=== PATIENT | female | born 1950 | race Caucasian/White ===

== ENCOUNTER → 2017-04-19 | Outpatient (CLI) | payer MEDICARE, MEDICAID ==
--- NOTE | 2017-04-19 15:29 | REPMRS ---
Patient History The patient states she had a clinical breast exam in 03/2017. Patient is postmenopausal. Family history of breast cancer in maternal grandmother at age 50 or over. Benign stereotatic breast biopsy of the left breast. Digital Woman Screen Mammo: April 19, 2017 - Exam #: [id number] Bilateral CC and MLO view(s) were taken. Technologist: Justyna Hood, Technologist Prior study comparison: March 13, 2016, digital woman screen mammo performed at [facility]. February 15, 2015, digital woman screen mammo performed at [facility]. FINDINGS: There are scattered fibroglandular densities. There has been no change in the appearance of the mammogram from the prior studies. There is a mild amount of residual fibroglandular tissue which is fairly symmetric. There is no interval development of dominant mass, architectural distortion, or clustered microcalcification suggestive of malignancy. ASSESSMENT: BI-RADS/ACR category 1 mammogram. Negative. Recommendation Routine screening mammogram in 1 year (for women over age 40). This mammogram was interpreted with the aid of an FDA-approved computer-aided dectection system. Electronically Signed By: Nadir Barba MD 04/19/17 [id number]
== END ==
LOC: M WHC 13:11
PROVIDERS: ATTEND Nurse Practitioner Women's Health
DX: Z12.31 Encounter for screening mammogram for malignant neoplasm of breast (principal); Z78.0 Asymptomatic menopausal state; Z92.89 Personal history of other medical treatment; Z80.3 Family history of malignant neoplasm of breast

== ENCOUNTER → 2017-10-29 | Outpatient (CLI) | payer MEDICARE, MEDICAID ==
[2017-10-29 13:41] LABS: BASO # 0.1 10^3/uL (0.0-0.2); BASO % 0.6 % (0.0-1.0); EOS % 0.2 % (0.0-3.0); HEMOGLOBIN 13.6 g/dl (12.0-15.5); IMMATURE GRANULOCYTE % 0.2 % (0-3.0); LYMPH # 1.1 10^3/uL (1.5-4.5); LYMPH % 11.8 % (24.0-44.0); MEAN CORPUSCULAR HEMOGLOBIN 32.2 pg (27.0-33.0); MEAN CORPUSCULAR HGB CONC 33.2 g/dl (32.0-36.5); MEAN CORPUSCULAR VOLUME 97.2 fl (80.0-96.0); MONO # 0.3 10^3/uL (0.0-0.8); MONO % 3.5 % (0.0-5.0); NEUTROPHILS # 7.6 10^3/uL (1.8-7.7); NEUTROPHILS % 83.7 % (36.0-66.0); PLATELET COUNT, AUTOMATED 223 10^3/uL (150-450); RED BLOOD COUNT 4.22 10^6/uL (4.00-5.40); RED CELL DISTRIBUTION WIDTH 12.8 % (11.5-14.5); WHITE BLOOD COUNT 9.1 10^3/uL (4.0-10.0)
[2017-10-29 14:09] LABS: ESTIMATED AVERAGE GLUCOSE 126 MG/DL (60-110)
[2017-10-29 14:18] LABS: TOTAL 25(OH) VITAMIN D 125.8 NG/ML (30.0-100.0)
[2017-10-29 14:20] LABS: ALBUMIN 3.7 GM/DL (3.2-5.2); ALBUMIN/GLOBULIN RATIO 1.09 (1.00-1.93); ALKALINE PHOSPHATASE 66 U/L (45-117); ALT/SGPT 14 U/L (12-78); ANION GAP 7 MEQ/L (8-16); AST/SGOT 12 U/L (7-37); BILIRUBIN,TOTAL 0.4 MG/DL (0.2-1.0); BLOOD UREA NITROGEN 24 MG/DL (7-18); CALCIUM LEVEL 9.3 MG/DL (8.8-10.2); CARBON DIOXIDE LEVEL 27 MEQ/L (21-32); CHLORIDE LEVEL 106 MEQ/L (98-107); CHOLESTEROL LEVEL 166 MG/DL (<200); CHOLESTEROL RISK RATIO 2.766 (<5); CREATININE FOR GFR 1.15 MG/DL (0.55-1.30); FREE T4 1.07 NG/DL (0.76-1.46); GLOMERULAR FILTRATION RATE 50.3 (>45); GLUCOSE, FASTING 88 MG/DL (70-100); HDL CHOLESTEROL 60 MG/DL (>40); LDL CHOLESTEROL 89.2 MG/DL (<100); MAGNESIUM LEVEL 1.7 MG/DL (1.8-2.4); NON-HDL-C 106 MG/DL; SODIUM LEVEL 140 MEQ/L (136-145); THYROID STIMULATING HORMONE 0.893 uIU/ML (0.358-3.740); TOTAL PROTEIN 7.1 GM/DL (6.4-8.2); TRIGLYCERIDES LEVEL 84 MG/DL (<150)
[2017-10-29 14:24] LABS: POTASSIUM SERUM 5.4 MEQ/L (3.5-5.1)
== END ==
LOC: M LAB 12:46
DX: I10 Essential (primary) hypertension (principal); I25.10 Atherosclerotic heart disease of native coronary artery without angina pectoris; Z79.899 Other long term (current) drug therapy; E78.00 Pure hypercholesterolemia, unspecified; R73.09 Other abnormal glucose; E55.9 Vitamin D deficiency, unspecified
CPT/HCPCS: 83735

== ENCOUNTER 2018-01-20 17:06 | Emergency (ER) | payer MEDICARE, MEDICAID | END 2018-01-20 20:59 | disposition home or self-care (01) | LOC: M ED 17:06 | DX: M71.21 Synovial cyst of popliteal space [Baker], right knee (principal); M06.9 Rheumatoid arthritis, unspecified; Z86.718 Personal history of other venous thrombosis and embolism; Z95.0 Presence of cardiac pacemaker; F17.210 Nicotine dependence, cigarettes, uncomplicated; Z88.2 Allergy status to sulfonamides; Z79.899 Other long term (current) drug therapy; Z79.52 Long term (current) use of systemic steroids | CPT/HCPCS: 93971 ==

== ENCOUNTER → 2018-03-21 | Outpatient (CLI) | payer MEDICARE, MEDICAID ==
[2018-03-21 11:06] LABS: POTASSIUM SERUM 4.8 MEQ/L (3.5-5.1)
== END ==
LOC: M LAB 10:31
DX: E87.5 Hyperkalemia (principal)
CPT/HCPCS: 84132

== ENCOUNTER → 2018-03-27 | Outpatient (CLI) | payer MEDICARE, MEDICAID ==
[2018-03-27 09:26] LABS: POTASSIUM SERUM 4.5 MEQ/L (3.5-5.1)
== END ==
LOC: M LAB 08:27
DX: E87.5 Hyperkalemia (principal)
CPT/HCPCS: 84132

== ENCOUNTER → 2018-07-15 | Outpatient (CLI) | payer MEDICARE, MEDICAID ==
[~2018-07-15] MED LIST: ATOR40TA75 PO; FLUT22IN PO; HYDR-3716 PO; LISI-538 PO; METO1TAB32 PO; MONT10TA2 PO; PRED5TA PO; RANI150T PO
[2018-07-15 15:15] LABS: BASO # 0.1 10^3/uL (0.0-0.2); EOS # 0.1 10^3/uL (0.0-0.50); EOS % 0.9 % (0.0-3.0); HEMATOCRIT 43.5 % (36.0-47.0); HEMOGLOBIN 14.3 g/dl (12.0-15.5); LYMPH # 1.4 10^3/uL (1.5-4.5); LYMPH % 17.3 % (24.0-44.0); MEAN CORPUSCULAR HEMOGLOBIN 32.5 pg (27.0-33.0); MEAN CORPUSCULAR HGB CONC 32.9 g/dl (32.0-36.5); MEAN CORPUSCULAR VOLUME 98.9 fl (80.0-96.0); MONO # 0.5 10^3/uL (0.0-0.8); MONO % 6.3 % (0.0-5.0); NEUTROPHILS # 5.9 10^3/uL (1.8-7.7); NEUTROPHILS % 74.2 % (36.0-66.0); PLATELET COUNT, AUTOMATED 182 10^3/uL (150-450)
[2018-07-15 15:45] LABS: ALBUMIN 3.5 GM/DL (3.2-5.2); BILIRUBIN,TOTAL 0.4 MG/DL (0.2-1.0); CREATININE FOR GFR 1.19 MG/DL (0.55-1.30); FREE T4 0.95 NG/DL (0.76-1.46); GLOMERULAR FILTRATION RATE 48.3 (>45); MAGNESIUM LEVEL 1.7 MG/DL (1.8-2.4); POTASSIUM SERUM 5.2 MEQ/L (3.5-5.1); THYROID STIMULATING HORMONE 0.801 uIU/ML (0.358-3.740); TOTAL PROTEIN 6.6 GM/DL (6.4-8.2)
== END ==
LOC: M LAB 14:23
PROVIDERS: ATTEND Nurse Practitioner Adult Health
DX: E78.2 Mixed hyperlipidemia (principal); I25.10 Atherosclerotic heart disease of native coronary artery without angina pectoris

== ENCOUNTER → 2018-07-15 | Outpatient (CLI) | payer MEDICARE, MEDICAID ==
[2018-07-15 15:43] LABS: CHOLESTEROL RISK RATIO 2.924 (<5)
== END ==
LOC: M LAB 14:31
PROVIDERS: ATTEND Physician Assistant
DX: I25.10 Atherosclerotic heart disease of native coronary artery without angina pectoris (principal)

== ENCOUNTER → 2018-09-09 | Outpatient (CLI) | payer MEDICARE ==
[2018-09-09 08:48] LABS: BASO # 0.1 10^3/uL (0.0-0.2); BASO % 0.6 % (0.0-1.0); EOS % 0.2 % (0.0-3.0); HEMATOCRIT 44.3 % (36.0-47.0); HEMOGLOBIN 14.4 g/dl (12.0-15.5); LYMPH # 0.9 10^3/uL (1.5-4.5); LYMPH % 6.9 % (24.0-44.0); MEAN CORPUSCULAR HEMOGLOBIN 32.3 pg (27.0-33.0); MEAN CORPUSCULAR HGB CONC 32.5 g/dl (32.0-36.5); MEAN CORPUSCULAR VOLUME 99.3 fl (80.0-96.0); MONO # 0.6 10^3/uL (0.0-0.8); NEUTROPHILS # 10.9 10^3/uL (1.8-7.7); NEUTROPHILS % 87.1 % (36.0-66.0); PLATELET COUNT, AUTOMATED 197 10^3/uL (150-450); RED BLOOD COUNT 4.46 10^6/uL (4.00-5.40); WHITE BLOOD COUNT 12.5 10^3/uL (4.0-10.0)
[2018-09-09 09:10] LABS: HEMOGLOBIN A1c 5.9 %
[2018-09-09 09:17] LABS: ALBUMIN 3.4 GM/DL (3.2-5.2); BILIRUBIN,TOTAL 0.5 MG/DL (0.2-1.0); CALCIUM LEVEL 8.9 MG/DL (8.8-10.2); CHOLESTEROL RISK RATIO 2.61 (<5); CREATININE FOR GFR 1.26 MG/DL (0.55-1.30); FREE T4 1.09 NG/DL (0.76-1.46); GLOMERULAR FILTRATION RATE 45.1 (>45); MAGNESIUM LEVEL 1.8 MG/DL (1.8-2.4); POTASSIUM SERUM 5.1 MEQ/L (3.5-5.1); THYROID STIMULATING HORMONE 0.994 uIU/ML (0.358-3.740); TOTAL PROTEIN 6.5 GM/DL (6.4-8.2)
== END ==
LOC: M LAB 08:16
PROVIDERS: ATTEND Nurse Practitioner Adult Health
DX: E78.2 Mixed hyperlipidemia (principal); E03.9 Hypothyroidism, unspecified; E61.2 Magnesium deficiency; Z79.899 Other long term (current) drug therapy

== ENCOUNTER 2019-02-08 15:13 | Emergency (ER) | payer MEDICARE, MEDICAID ==
[2019-02-08 16:12] VITALS: BP 110/56
--- NOTE | 2019-02-08 19:49 | REP ---
REASON: Pain after trauma. Four views were obtained. The bones are demineralized. There is mild medial compartmental marginal osteophytosis. There is no evidence of an acute fracture. A sunrise view was unobtainable. This limits the exam for patellar fracture. IMPRESSION:Limited exam showing chronic changes. Electronically Signed by Joe Dietrich DO 02/09/2019 10:02 A
== END 2019-02-08 16:48 | disposition home or self-care (01) ==
LOC: M ED 15:13
DX: S83.92XA Sprain of unspecified site of left knee, initial encounter (principal); W01.0XXA Fall on same level from slipping, tripping and stumbling without subsequent striking against object, initial encounter; Y92.002 Bathroom of unspecified non-institutional (private) residence as the place of occurrence of the external cause; Y93.E1 Activity, personal bathing and showering; I10 Essential (primary) hypertension; J44.9 Chronic obstructive pulmonary disease, unspecified; M06.9 Rheumatoid arthritis, unspecified; Z79.52 Long term (current) use of systemic steroids; Z79.891 Long term (current) use of opiate analgesic; Z79.899 Other long term (current) drug therapy; Z88.2 Allergy status to sulfonamides

== ENCOUNTER 2019-05-06 18:00 | Emergency (ER) | payer MEDICARE, MEDICAID ==
[~2019-05-06] VITALS: Ht 157.5 cm; Wt 54.4 kg
[2019-05-06] MEDS ORDERED: GABA-843 (18:05)
[2019-05-06 19:39] LABS: ERYTHROCYTE SEDIMENTATION RATE 23 mm/hr (0-30)
[2019-05-06 19:40] LABS: BASO # 0.1 10^3/uL (0.0-0.2); BASO % 0.7 % (0.0-1.0); EOS # 0.1 10^3/uL (0.0-0.5); HEMATOCRIT 42.1 % (36.0-47.0); HEMOGLOBIN 13.4 g/dl (12.0-15.5); LYMPH # 1.6 10^3/uL (1.5-5.0); LYMPH % 16.2 % (24.0-44.0); MEAN CORPUSCULAR HEMOGLOBIN 31.5 pg (27.0-33.0); MEAN CORPUSCULAR HGB CONC 31.8 g/dl (32.0-36.5); MEAN CORPUSCULAR VOLUME 98.8 fl (80.0-96.0); MONO # 0.6 10^3/uL (0.0-0.8); MONO % 6.4 % (0.0-5.0); NEUTROPHILS # 7.3 10^3/uL (1.5-8.5); NEUTROPHILS % 75.3 % (36.0-66.0); PLATELET COUNT, AUTOMATED 250 10^3/uL (150-450); RED BLOOD COUNT 4.26 10^6/uL (4.00-5.40); WHITE BLOOD COUNT 9.7 10^3/uL (4.0-10.0)
[2019-05-06 19:41] LABS: C REACTIVE PROTEIN QUANTITATIV 0.95 MG/DL (0.00-0.30); CALCIUM LEVEL 8.9 MG/DL (8.8-10.2); CREATININE FOR GFR 1.31 MG/DL (0.55-1.30); GLOMERULAR FILTRATION RATE 43.1 (>45)
[2019-05-06] MEDS ORDERED: PRED5TA PO (20:35)
[2019-05-06 20:39] VITALS: BP 113/54
[2019-05-06] MEDS ORDERED: predniSONE 20 MG TAB PO ONE (20:45)
--- NOTE | 2019-05-07 07:18 | REP ---
LEFT ELBOW SERIES: Four views. HISTORY: Pain and swelling. FINDINGS: Four views left elbow show marked rosette-olecranon soft tissue swelling which may reflect rosette-olecranon bursitis. There is olecranon process spurring. 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 Some ulna trochlear osteoarthritic narrowing is seen. Subcortical cyst formation is noted in the olecranon process. I suspect an elbow joint effusion distorting the fat pads. IMPRESSION: No fracture seen. Marked rosette-olecranon soft tissue swelling may reflect bursitis. 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 There is some chondrocalcinosis. Electronically Signed by Son Romano MD 05/07/2019 09:10 A
== END 2019-05-06 20:55 | disposition home or self-care (01) ==
LOC: M ED 18:00
DX: M70.22 Olecranon bursitis, left elbow (principal); Z88.2 Allergy status to sulfonamides; F17.218 Nicotine dependence, cigarettes, with other nicotine-induced disorders; Y93.9 Activity, unspecified

== ENCOUNTER 2019-07-28 17:52 | Inpatient (IN) | payer MEDICARE, MEDICAID ==
[~2019-07-28] VITALS: Ht 157.5 cm; Wt 53.5 kg
[~2019-07-28 17:52] MED LIST changes: +GABA-843 PO
[2019-07-28] MEDS ORDERED: MAGN250T6 PO (18:50)
[2019-07-28] MEDS ORDERED: FAMO1TAB11 PO (18:50)
[2019-07-28] MEDS ORDERED: ALL10TAB29 PO (18:50)
[2019-07-28] MEDS ORDERED: NS 500 ML IV ONE ×2 (19:15→20:15)
[2019-07-28] MEDS ORDERED: dexameTHASONE 20 MG/5 ML VIAL (J1100) IV ONE (19:30)
[2019-07-28 20:06] LABS: BASO % 0.1 % (0.0-1.0); EOS % 0.1 % (0.0-3.0); HEMOGLOBIN 13.5 g/dl (12.0-15.5); LYMPH # 0.9 10^3/uL (1.5-5.0); LYMPH % 5.8 % (24.0-44.0); MEAN CORPUSCULAR HEMOGLOBIN 30.6 pg (27.0-33.0); MEAN CORPUSCULAR HGB CONC 31.4 g/dl (32.0-36.5); MEAN CORPUSCULAR VOLUME 97.5 fl (80.0-96.0); MONO # 0.8 10^3/uL (0.0-0.8); MONO % 4.9 % (0.0-5.0); NEUTROPHILS # 13.8 10^3/uL (1.5-8.5); NEUTROPHILS % 88.7 % (36.0-66.0); PLATELET COUNT, AUTOMATED 150 10^3/uL (150-450); RED BLOOD COUNT 4.41 10^6/uL (4.00-5.40); WHITE BLOOD COUNT 15.6 10^3/uL (4.0-10.0)
[2019-07-28 20:32] LABS: ALBUMIN 2.8 GM/DL (3.2-5.2); BILIRUBIN,DIRECT 0.2 MG/DL (0.0-0.2); BILIRUBIN,TOTAL 0.4 MG/DL (0.2-1.0); TOTAL PROTEIN 5.9 GM/DL (6.4-8.2)
[2019-07-28] MEDS ORDERED: DOCUSATE SODIUM 100 MG CAP PO SCH (21:00)
--- NOTE | 2019-07-28 22:12 | HPEPDOC ---
[facility] Medical History & Physical Date of Admission Jul 28, 2019 Date of Service: Jul 28, 2019 Other Provider Kriss SANCHEZ Attending Physician: MILAGROS LÓPEZ MD History and Physical TIME OF SERVICE: 10:40 PM CHIEF COMPLAINT:, Diarrhea HISTORY OF PRESENT ILLNESS: This is a 61 yr old female who presents with complaints of diarrhea for 2 days. She reports having 5-6 episodes of watery BMs per day without blood. Associated symptoms include cramping abdominal pain and 2 episodes of nonbloody emesis. She denies having fevers, chills, or sick contacts. She was on antibiotics for an infection of the leg for about 20 days. She also reports having decreased urine output. She reports having low blood pressure at baseline and reports that her BP is usually around 80/45. She denies feeling dizzy. REVIEW OF SYSTEMS: 12 point review of systems negative except as listed in HPI PAST MEDICAL/ SURGICAL HISTORY: Rheumatoid arthritis, chronically on prednisone. History of left lower extremity DVT. History of chronic anemia Chronic hypertension. Dyslipidemia. GERD Status post left hallux partial left amputation Status post appendectomy Status post left ovarian cystectomy SOCIAL HISTORY: She smokes FAMILY HISTORY: Stomach cancer. Congestive heart failure. History of blood clots ALLERGIES: Please see below. HOME MEDICATIONS: Please see below. PHYSICAL EXAMINATION: VITAL SIGNS: Please see below. GEN: well-nourished / well developed/ NAD INTEGUMENT: not flushed/ she is tanned HEENT: NCAT / lips acyanotic /mucus membranes moist and pink / sclera anicteric CVS: RRR/NMRG/ no JVP / radial and dorsalis pedis pulses intact / no lower extremity edema LUNGS: able to speak full sentences without stopping to take a breath / no coughing / lungs are clear to auscultation bilaterally on room air ABDOMEN: Contour (flat,) / soft & not tender with palpation MSK/EXTREMITIES: range of motion intact in all 4 extremities NEURO: CN 2-12 are grossly intact / speech is not dysarthric PSYCH: alert and oriented to person place and time/ able to understand and follow all commands LABORATORY DATA: See below. IMAGING: N/A MICROBIOLOGY: Please see below. ASSESSMENT: Ms. Thomas is a 63 yr old female with a past medical history of rheumatoid arthritis, chronic hypertension, dyslipidemia, and GERD who is admitted for management of ALESIA and evaluation of diarrhea in the setting of taking antibiotics recently. PLAN: 1.SIRS likely reactive due to diarrhea SIRS criteria include respiratory rate 22 and WBC count of 15.6 Plan: admit to medical floor / initiate Sepsis protocol w lactic acid / metronidazole for possible GI source / switch to lactate ringers /f/u blood cx/ Acetaminophen PRN for fever 2. Colitis/diarrhea. Source to be determined. Plan: Follow-up C. difficile because the patient is immunosuppressed and was recently on antibiotics / follow-up old and parasites and stool calprotectin 3. ALESIA Acute Renal Failure Likely prerenal due to dehydration in the setting of diarrhea previous creatinine was 1.3 , today it is 1.7 the patient was hyaline casts , which are indicative of poor kidney perfusion Plan: continue with / f/u ulytes for FENa / If her renal function does not improve, the daytime team may consider ordering a renal US 4. Hypotension. There was a concern that she might have adrenal insufficiency. The patient reports having low blood pressure to baseline ? 80/45 but per chart review she has a hx of HTN and takes lisionpril She reports being tanned bc she just returned from [facility]. She received IV steroids in the ER Plan: Follow-up orthostats / IV fluids & hold lisinopril & metoprolol 5. Asthma?/ COPD ? Plan: Continue albuterol and monteluklast 6. Rheumatoid arthritis Plan: Continue home dose of steroids 7. Tobacco abuse. Plan: Smoking cessation and she should 8. GERD Plan: Continue famotidine DVT PROPHYLAXIS: Lovenox DISPOSITION: Home after more than 2 midnight's stay Vital Signs Vital Signs Date Time Temp Pulse Resp B/P (MAP) Pulse Ox O2 Delivery O2 Flow Rate FiO2 07/28/19 21:32 65 89/50 (63) 95 Room Air 07/28/19 18:18 16 07/28/19 17:53 98.7 Laboratory Data Labs 24H Laboratory Tests 2 07/28/19 19:45: Immature Granulocyte % (Auto) 0.4, Neutrophils (%) (Auto) 88.7H, Lymphocytes (%) (Auto) 5.8L, Monocytes (%) (Auto) 4.9, Eosinophils (%) (Auto) 0.1, Basophils (%) (Auto) 0.1, Neutrophils # (Auto) 13.8H, Lymphocytes # (Auto) 0.9L, Monocytes # (Auto) 0.8, Eosinophils # (Auto) 0.0, Basophils # (Auto) 0.0, Nucleated Red Blood Cells % (auto) 0.0, Total Bilirubin 0.4, Direct Bilirubin 0.2, Aspartate Amino Transf (AST/SGOT) 14, Alanine Aminotransferase (ALT/SGPT) 13, Alkaline Phosphatase 137H, Total Protein 5.9L, Albumin 2.8L, Albumin/Globulin Ratio 0.90L, Amylase Level 28, Lipase 74 07/28/19 19:55: POC Glucose (Misc Panel) 98, POC Sodium (Misc Panel) 136, POC Potassium (Misc Panel) 4.9, POC Chloride (Misc Panel) 105, POC Total CO2 (Misc Panel) 23.0, POC Blood Urea Nitrogen (Misc Panel 45H, POC Ionized Calcium (Misc Panel) 4.8, POC Creatinine (Misc Panel) 1.7H, POC Hematocrit (Misc Panel) 42.0 07/28/19 21:42: Urine Color YELLOW, Urine Appearance HAZY, Urine pH 5.0, Urine Specific [place] 1.014, Urine Protein NEGATIVE, Urine Glucose (UA) NEGATIVE, Urine Ketones NEGATIVE, Urine Blood 1+H, Urine Nitrite NEGATIVE, Urine Bilirubin NEGATIVE, Urine Urobilinogen 0.2, Urine Leukocyte Esterase 1+H, Urine WBC (Auto) 1, Urine RBC (Auto) 3, Urine Hyaline Casts (Auto) 38, Urine Bacteria (Auto) 2+H, Urine Squamous Epithelial Cells 2, Urine Mucus (Auto) SMALL, Urine Sperm (Auto) CBC/BMP Laboratory Tests 07/28/19 19:45 Microbiology Microbiology 07/28/19 Urine Culture, Received Pending 07/28/19 Blood Culture, Received Pending 07/28/19 Blood Culture, Received Pending Home Medications Scheduled Aspirin (Aspir 81) 81 Mg Tablet.dr, 81 MG PO DAILY Atorvastatin Calcium (Atorvastatin Calcium) 40 Mg Tab, 40 MG PO DAILY Cetirizine HCl (Cetirizine HCl) 10 Mg Tablet, 10 MG PO DAILY Famotidine (Famotidine) 20 Mg Tablet, 20 MG PO DAILY Gabapentin (Gabapentin) 300 Mg Capsule, 300 MG PO TID Lisinopril (Lisinopril) 20 Mg Tab, 20 MG PO DAILY Magnesium Oxide (Magnesium Oxide) 250 Mg Tablet, 250 MG PO DAILY Metoprolol Succinate (Metoprolol Succinate) 25 Mg Tab, 25 MG PO DAILY Montelukast Sodium (Montelukast Sodium) 10 Mg Tab, 10 MG PO DAILY Prednisone (Prednisone) 5 Mg Tab, 5 MG PO DAILY Scheduled PRN Albuterol Sulfate (Proair Hfa) 8.5 Gm Hfa.aer.ad, 2 PUFF INH Q4H PRN for SOB/WHEEZING Allergies Coded Allergies: Sulfa (Sulfonamide Antibiotics) (Verified Allergy, Unknown, rash, 02/08/19) A-FIB/CHADSVASC A-FIB History Current/History of A-Fib/PAF?: No Current PO Anticoag Therapy: No MILAGROS LÓPEZ MD Jul 28, 2019 22:12
[2019-07-28] MEDS ORDERED: MOM 30ML SUSPENSION UDC PO PRN (22:15)
[2019-07-28] MEDS ORDERED: ACETAMINOPHEN TAB 650MG DOSE (2X325MG) PO PRN (22:15)
[2019-07-28] MEDS ORDERED: MAALOX 30 ML SUSP *UDC PO PRN (22:15)
[2019-07-28 22:59] LABS: CORTISOL BASELINE 8.7 UG/DL (4.3-22.4)
[2019-07-28] MEDS ORDERED: COSYNTROPIN 0.25 MG/ML VIAL (J0834 PER 0.25MG) IV ONE (23:00)
[2019-07-28] MEDS ORDERED: ASPI81TA85 PO (23:54)
[2019-07-28] MEDS ORDERED: PROAAER10 INH (23:54)
[2019-07-29] VITALS (7 sets, daily range): BP systolic 82–112; BP diastolic 40–58
[2019-07-29] MEDS ORDERED: ALBUTEROL 90 MCG/ACT 8GM HFA INHALER INH PRN (02:45)
[2019-07-29] MEDS: LR 1,000 ML IV SCH ×3 (05:47→20:12)
[2019-07-29] MEDS: metroNIDAZOLE 500 MG in IV 1 EA IV SCH ×3 (05:47→18:16)
[2019-07-29 06:43] LABS: HEMATOCRIT 42.8 % (36.0-47.0); HEMOGLOBIN 13.5 g/dl (12.0-15.5); MEAN CORPUSCULAR HEMOGLOBIN 30.7 pg (27.0-33.0); MEAN CORPUSCULAR HGB CONC 31.5 g/dl (32.0-36.5); MEAN CORPUSCULAR VOLUME 97.3 fl (80.0-96.0); PLATELET COUNT, AUTOMATED 143 10^3/uL (150-450); WHITE BLOOD COUNT 12.5 10^3/uL (4.0-10.0)
[2019-07-29 07:13] LABS: CALCIUM LEVEL 8.6 MG/DL (8.8-10.2); CREATININE FOR GFR 1.37 MG/DL (0.55-1.30); GLOMERULAR FILTRATION RATE 40.8 (>45); MAGNESIUM LEVEL 1.6 MG/DL (1.8-2.4); POTASSIUM SERUM 4.9 MEQ/L (3.5-5.1)
[2019-07-29] MEDS: cefTRIAXone SOD 1 GM in D5W MINI-BAG PLUS 50 ML IV SCH (08:50)
[2019-07-29] MEDS: GABAPENTIN 300 MG CAP PO SCH ×3 (08:51→20:12)
[2019-07-29] MEDS: CETIRIZINE (ZyrTEC) 10 MG TAB PO SCH (08:51)
[2019-07-29] MEDS: ENOXAPARIN 40 MG/0.4 ML SYRINGE (J1650) SC SCH (08:51)
[2019-07-29] MEDS: ATORVASTATIN 20 MG TAB PO SCH (08:51)
[2019-07-29] MEDS: ASPIRIN 81 MG ENTERIC TAB PO SCH (08:51)
[2019-07-29] MEDS: predniSONE 5 MG TAB PO SCH (08:51)
[2019-07-29] MEDS: FAMOTIDINE 20 MG TAB PO SCH (08:51)
[2019-07-29] MEDS: MONTELUKAST 10 MG TAB PO SCH (12:04)
[2019-07-29] MEDS ORDERED: HYDROCORTISONE 100 MG/2 ML VIAL (J1720 PER 1) IV SCH (13:30)
[2019-07-29] MEDS ORDERED: HYDROCORTISONE 100 MG/2 ML VIAL (J1720 PER 1) IV ONE (13:30)
--- NOTE | 2019-07-29 14:01 | IPNPDOC ---
Text Note Date of Service The patient was seen on 07/29/19. NOTE Subjective: Patient is a 61-year-old female with a PMHx of HTN, DLP, Hx of LLE DVT, RA on Prednisone (>20 years), Chronic Anemia, GERD, who presented to the emergency room after experiencing diarrhea since of last week. Patient reports that she had associated nausea and vomiting as well as crampy abdominal pain. . She denies any fevers, chills at home. Upon arrival to emergency room, patient was found to have a blood pressure of 80/45; however remained asymptomatic. Patient was suspected of having adrenal insufficiency and was admitted to hospitalist service for further evaluation and treatment. She was started on IV fluid hydration and received a cosyntropin stimulation test. Patient was seen and examined at the bedside. Currently, patient reports that she's not expressing any nausea, vomiting, abdominal pain or any further bowel movements since admission. She denies any chest pain. She is well-developed, palpitations. Denies any lightheadedness or dizziness. Objective: Vitals (See below) General: Lying in bed, no acute distress, comfortable, AAOx3 HEENT: NC, AT CVS: RRR, +S1S2 Lungs: Fair air entry b/l, -w/r/r Abdomen: Soft, ND, NT Extremities: - Edema, - Calf tenderness Assessment and plan: N/V and Diarrhea - Reports that her diarrhea has resolved - Physical without any abdominal tenderness - f/u GI panel; if she can provide a stool sample ALESIA - likely 2/2 pre-renal etiology - 2/2 hypovolemia - 2/2 N/V and diarrhea - Cr continues to improve with IV fluid hydration - c/w IV fluids Hypotension - Remains asymptomatic - Reports her BP is chronically low as an outpatient at 80s/40s - No lactic acidosis - Cosyntropin stimulation test completed; with an appropriate increase at he limits of cutoff - c/w IV fluid hydration Asthma?/ COPD ? - c/w Inhaled therapy as ordered Rheumatoid arthritis - c/w Prednisone Tobacco abuse - Advised smoking cessation GI prophylaxis - c/w Famotidine DVT prophylaxis - c/w Lovenox VS,Fishbone, I+O VS, Fishbone, I+O Laboratory Tests 07/28/19 19:45 07/29/19 06:34 Vital Signs Date Time Temp Pulse Resp B/P (MAP) Pulse Ox O2 Delivery O2 Flow Rate FiO2 07/29/19 12:16 79 82/46 (58) 07/29/19 08:33 96.8 20 98 Room Air I&O- Last 24 Hours up to 6 AM 07/29/19 06:00 Intake Total 1000 ml Balance 1000 ml EARNEST TRINIDAD MD Jul 29, 2019 14:01
[2019-07-30 04:00] VITALS: BP 99/48
[2019-07-30] MEDS: metroNIDAZOLE 500 MG in IV 1 EA IV SCH ×2 (04:02→11:00)
[2019-07-30 04:28] LABS: HEMATOCRIT 39.9 % (36.0-47.0); HEMOGLOBIN 12.6 g/dl (12.0-15.5); MEAN CORPUSCULAR HEMOGLOBIN 30.6 pg (27.0-33.0); MEAN CORPUSCULAR HGB CONC 31.6 g/dl (32.0-36.5); MEAN CORPUSCULAR VOLUME 96.8 fl (80.0-96.0); PLATELET COUNT, AUTOMATED 171 10^3/uL (150-450); RED BLOOD COUNT 4.12 10^6/uL (4.00-5.40); WHITE BLOOD COUNT 19.4 10^3/uL (4.0-10.0)
[2019-07-30 05:42] LABS: BLOOD UREA NITROGEN 40 MG/DL (7-18); CALCIUM LEVEL 8.6 MG/DL (8.8-10.2); CARBON DIOXIDE LEVEL 21 MEQ/L (21-32); CHLORIDE LEVEL 112 MEQ/L (98-107); CK-MB VALUE MASS 3.4 NG/ML (<3.6); CPK CREATINE PHOSPHOKINASE 60 U/L (26-192); CREATININE FOR GFR 1.18 MG/DL (0.55-1.30); GLOMERULAR FILTRATION RATE 48.5 (>45); GLUCOSE, FASTING 106 MG/DL (70-100); MAGNESIUM LEVEL 1.5 MG/DL (1.8-2.4); MB/CK RELATIVE INDEX 5.67 (< OR =4); SODIUM LEVEL 141 MEQ/L (136-145); TROPONIN I < 0.02 NG/ML (< 0.10)
[2019-07-30 08:00] VITALS: BP 113/53
[2019-07-30] MEDS: cefTRIAXone SOD 1 GM in D5W MINI-BAG PLUS 50 ML IV SCH (08:00)
[2019-07-30] MEDS: LR 1,000 ML IV SCH (08:03)
[2019-07-30] MEDS: ASPIRIN 81 MG ENTERIC TAB PO SCH (08:03)
[2019-07-30] MEDS: MONTELUKAST 10 MG TAB PO SCH (08:03)
[2019-07-30] MEDS: MAG SULF 1GM/100ML (MAG RUN) 1 GM in IV 1 EA IV SCH ×2 (08:03→09:50)
[2019-07-30] MEDS: CETIRIZINE (ZyrTEC) 10 MG TAB PO SCH (08:03)
[2019-07-30] MEDS: ATORVASTATIN 20 MG TAB PO SCH (08:03)
[2019-07-30] MEDS: ENOXAPARIN 40 MG/0.4 ML SYRINGE (J1650) SC SCH (08:03)
[2019-07-30] MEDS: predniSONE 5 MG TAB PO SCH (08:04)
[2019-07-30] MEDS: GABAPENTIN 300 MG CAP PO SCH (08:04)
[2019-07-30] MEDS: FAMOTIDINE 20 MG TAB PO SCH (08:04)
--- NOTE | 2019-07-30 11:13 | DS.PDOC ---
Discharge Summary General Date of Admission Jul 28, 2019 at 22:03 Date of Discharge 07/30/2019 Discharge Summary PROCEDURES PERFORMED DURING STAY: [None]. ADMITTING DIAGNOSES / DISCHARGE DIAGNOSES: s/p N/V and Diarrhea s/p ALESIA - likely 2/2 pre-renal etiology - 2/2 hypovolemia - 2/2 N/V and diarrhea Hypotension - improved Asthma?/ COPD ? Rheumatoid arthritis Tobacco abuse GI prophylaxis DVT prophylaxis COMPLICATIONS/CHIEF COMPLAINT: Diarrhea associated with nausea and vomiting HISTORY OF PRESENT ILLNESS: Patient is a 61-year-old female with a PMHx of HTN, DLP, Hx of LLE DVT, RA on Prednisone (>20 years), Chronic Anemia, GERD, who presented to the emergency room after experiencing diarrhea since of last week. Patient reports that she had associated nausea and vomiting as well as crampy abdominal pain. . She denies any fevers, chills at home. Upon arrival to emergency room, patient was found to have a blood pressure of 80/45; however remained asymptomatic. Patient was suspected of having adrenal insufficiency and was admitted to hospitalist service for further evaluation and treatment. She was started on IV fluid hydration and received a cosyntropin stimulation test. HOSPITAL COURSE: s/p N/V and Diarrhea - Reports that her diarrhea has resolved; no further episodes since admission - Physical without any abdominal tenderness - GI panel was unable to be collected - Will DC antibiotics - unlikely 2/2 bacterial etiology, most likely 2/2 viral etiology s/p ALESIA - likely 2/2 pre-renal etiology - 2/2 hypovolemia - 2/2 N/V and diarrhea - Cr on admission of 1.7; has improved to 1.18 - Will DC IV fluids Hypotension - improved - Remains asymptomatic - Reports her BP is chronically low as an outpatient at 80s/40s - has improved to the 100s - No lactic acidosis - Cosyntropin stimulation test completed; with an appropriate increase at he limits of cutoff - Will hold off on Lisinopril / Metoprolol; will have outpatient follow up with Cardiology - s/p IV fluid hydration Asthma?/ COPD ? - c/w Inhaled therapy as ordered Rheumatoid arthritis - c/w Prednisone Tobacco abuse - Advised smoking cessation GI prophylaxis - c/w Famotidine DVT prophylaxis - c/w Lovenox DISCHARGE MEDICATIONS: Please see below. ALLERGIES: Please see below. PHYSICAL EXAMINATION ON DISCHARGE: Vitals (See below) General: Lying in bed, no acute distress, comfortable, AAOx3 HEENT: NC, AT CVS: RRR, +S1S2 Lungs: Fair air entry b/l, no appreciable wheezing / rhonchi / rales Abdomen: Soft, non-distended, non-tender Extremities: no evidence of LE edema, - Calf tenderness LABORATORY DATA: Please see below. ACTIVITY: [As tolerated]. DISCHARGE PLAN: Follow up with Dr. Reuben Nova and Cardiology within 7 days Remain compliant with treatment plan and medications Return to the ER if you experience any problems DISPOSITION: Home with services DISCHARGE CONDITION: [Stable]. TIME SPENT ON DISCHARGE: 35 minutes Vital Signs/I&Os Vital Signs Date Time Temp Pulse Resp B/P (MAP) Pulse Ox O2 Delivery O2 Flow Rate FiO2 07/30/19 08:00 97.0 83 20 113/53 (73) 96 Room Air I&O- Last 24 Hours up to 6 AM 07/30/19 06:00 Intake Total 2240 ml Output Total 525 ml Balance 1715 ml Laboratory Data Labs 24H Laboratory Tests 2 07/29/19 14:14: 07/30/19 04:15: Nucleated Red Blood Cells % (auto) 0.0, Anion Gap 8, Glomerular Filtration Rate 48.5, Calcium Level 8.6L, Magnesium Level 1.5L, Total Creatine Kinase 60, Creatine Kinase MB 3.4, Creatine Kinase MB Relative Index 5.67H, Troponin I < 0.02 CBC/BMP Laboratory Tests 07/30/19 04:15 Microbiology Microbiology 07/28/19 Urine Culture - Final, Complete 07/28/19 Blood Culture - Preliminary, Resulted No growth after 24 hours . All specim... 07/28/19 Blood Culture - Preliminary, Resulted No growth after 24 hours . All specim... Discharge Medications Scheduled Aspirin (Aspir 81) 81 Mg Tablet.dr, 81 MG PO DAILY, (Reported) Atorvastatin Calcium (Atorvastatin Calcium) 40 Mg Tab, 40 MG PO DAILY, (Reported) Cetirizine HCl (Cetirizine HCl) 10 Mg Tablet, 10 MG PO DAILY, (Reported) Famotidine (Famotidine) 20 Mg Tablet, 20 MG PO DAILY, (Reported) Gabapentin (Gabapentin) 300 Mg Capsule, 300 MG PO TID, (Reported) Magnesium Oxide (Magnesium Oxide) 250 Mg Tablet, 250 MG PO DAILY, (Reported) Montelukast Sodium (Montelukast Sodium) 10 Mg Tab, 10 MG PO DAILY, (Reported) Prednisone (Prednisone) 5 Mg Tab, 5 MG PO DAILY, (Reported) Scheduled PRN Albuterol Sulfate (Proair Hfa) 8.5 Gm Hfa.aer.ad, 2 PUFF INH Q4H PRN for SOB/WHEEZING, (Reported) Allergies Coded Allergies: Sulfa (Sulfonamide Antibiotics) (Verified Allergy, Unknown, rash, 02/08/19) EARNEST TRINIDAD MD Jul 30, 2019 11:13
[2019-07-30 12:00] VITALS: BP 107/56
[2019-07-30 12:40] LABS: TROPONIN I 0.02 NG/ML (< 0.10)
[2019-07-30 12:43] LABS: CK-MB VALUE MASS 5.1 NG/ML (<3.6); MB/CK RELATIVE INDEX 6.07 (< OR =4)
--- NOTE | 2019-07-31 00:50 | ECGEPIP ---
[facility] Test Date: 2019-07-30 Pat Name: MILAGROS COLON Department: Room: [place] [address] Gender: Female [phone] Dispatcher: MYRIAM : 1950 Requested By: EDWIN GIORDANO D.O. Order Number: [id number] Reading MD: Ahmet Singer Measurements Intervals Jordan Rate: 62 P: 80 NJ: 174 QRS: 61 QRSD: 79 T: 120 QT: 400 QTc: 406 Interpretive Statements SINUS RHYTHM LOW QRS VOLTAGE IN EXTREMITY LEADS SEPTAL MYOCARDIAL INFARCTION, OF INDETERMINATE AGE MODERATE T-WAVE ABNORMALITY, CONSIDER ANTEROLATERAL ISCHEMIA PRIOR TRACING ON 10/05/2017 AT 5:29 P.M.. NO SIGNIFICANT CHANGES Electronically Signed on 07-31-2019 0:50:42 EST by Ahmet Singer
== END 2019-07-30 14:53 | disposition home health service (06) | DRG 392 ==
LOC: M ED 17:52 → M ED INP 22:03 → ENRESERVTM 07-29 07:02 → ENRESERVDT 07-29 07:02 → M ICU 07-29 08:19 → M PCU 07-29 19:29
PROVIDERS: ADMIT Internal Medicine; ATTEND Internal Medicine
DX: K52.9 Noninfective gastroenteritis and colitis, unspecified (principal); N17.9 Acute kidney failure, unspecified; I95.9 Hypotension, unspecified; F17.200 Nicotine dependence, unspecified, uncomplicated; R11.2 Nausea with vomiting, unspecified; M06.9 Rheumatoid arthritis, unspecified; E86.1 Hypovolemia; Z86.718 Personal history of other venous thrombosis and embolism; Z79.52 Long term (current) use of systemic steroids; K21.9 Gastro-esophageal reflux disease without esophagitis; D64.9 Anemia, unspecified; J44.9 Chronic obstructive pulmonary disease, unspecified; Z79.82 Long term (current) use of aspirin; Z79.899 Other long term (current) drug therapy; Z88.2 Allergy status to sulfonamides; E78.5 Hyperlipidemia, unspecified

== ENCOUNTER → 2020-08-18 | Outpatient (CLI) | payer MEDICARE, MEDICAID ==
[~2020-08-18] MED LIST changes: +ASPI81TA86 PO; +CETI-24 PO; +FAMO1TAB11 PO; +GABA-282 PO; -GABA-843 PO; -LISI-538 PO; +LISI20TA33 PO; +MAGN250T6 PO; +MONT10TA10 PO; -MONT10TA2 PO; +PROAAER10 INH
== END ==
LOC: M LAB 11:08
PROVIDERS: ATTEND Nurse Practitioner Adult Health
DX: E87.5 Hyperkalemia (principal); Z79.899 Other long term (current) drug therapy

== ENCOUNTER → 2020-11-15 | Outpatient (CLI) | payer MEDICARE, MEDICAID ==
--- NOTE | 2020-11-15 12:36 | REP ---
INDICATION: PAIN AFTER TWISTING INJURY COMPARISON: None. TECHNIQUE: Four views right foot. FINDINGS: I see no evidence of acute fracture or dislocation. There is moderate diffuse intertarsal and tarsal/metatarsal joint space narrowing, subchondral sclerosis and spurring. Small old fracture or accessory ossicle seen at the base of the 5th metatarsal. Metallic plate and screws fuse the 1st metatarsophalangeal joint. There is severe lateral angulation at the 1st interphalangeal joint, which is moderately narrowed. There is resection or severe erosive change of the distal 4th and 5th metatarsals. Chronic appearing subluxation/dislocation is seen at the 4th and 5th metatarsophalangeal joints. There is severe erosive change of the head of the 2nd metatarsal with mild arthritic changes at the 2nd metatarsophalangeal joint. There is fusion of the 3rd metatarsophalangeal joint. There is moderate to severe lateral angulation of the osseous structures of the 2nd and 3rd toes. IMPRESSION: No acute fracture or dislocation. Chronic arthritic and postsurgical changes as discussed in detail above. <Electronically signed by Nadir Barba > 11/15/20 [id number]
== END ==
LOC: M WUC 11:36
PROVIDERS: ATTEND Nurse Practitioner Family
DX: M25.774 Osteophyte, right foot (principal); M19.071 Primary osteoarthritis, right ankle and foot; S93.144A Subluxation of metatarsophalangeal joint of right lesser toe(s), initial encounter; X58.XXXA Exposure to other specified factors, initial encounter; Y93.9 Activity, unspecified; Y92.9 Unspecified place or not applicable; Y99.9 Unspecified external cause status

== ENCOUNTER → 2021-05-11 | Outpatient (CLI) | payer MEDICARE, MEDICAID ==
[2021-05-11 09:47] LABS: BASO % 0.2 % (0.0-1.0); HEMATOCRIT 42.2 % (36.0-47.0); HEMOGLOBIN 13.4 g/dl (12.0-15.5); LYMPH # 0.6 10^3/uL (1.5-5.0); LYMPH % 4.5 % (24.0-44.0); MEAN CORPUSCULAR HEMOGLOBIN 30.6 pg (27.0-33.0); MEAN CORPUSCULAR HGB CONC 31.8 g/dl (32.0-36.5); MEAN CORPUSCULAR VOLUME 96.3 fl (80.0-96.0); MONO # 0.5 10^3/uL (0.0-0.8); MONO % 4.1 % (2.0-8.0); NEUTROPHILS # 11.4 10^3/uL (1.5-8.5); NEUTROPHILS % 90.9 % (36.0-66.0); PLATELET COUNT, AUTOMATED 273 10^3/uL (150-450); RED BLOOD COUNT 4.38 10^6/uL (4.00-5.40); WHITE BLOOD COUNT 12.5 10^3/uL (4.0-10.0)
[2021-05-11 10:19] LABS: HEMOGLOBIN A1c 5.8 %
[2021-05-11 10:22] LABS: ALBUMIN 3.1 GM/DL (3.2-5.2); BILIRUBIN,TOTAL 0.4 MG/DL (0.2-1.0); CALCIUM LEVEL 9.1 MG/DL (8.8-10.2); CHOLESTEROL RISK RATIO 2.607 (<5); CREATININE FOR GFR 1.01 MG/DL (0.55-1.30); GLOMERULAR FILTRATION RATE 57.9 (>45); MAGNESIUM LEVEL 1.8 MG/DL (1.8-2.4); POTASSIUM SERUM 4.8 MEQ/L (3.5-5.1); THYROID STIMULATING HORMONE 0.542 uIU/ML (0.358-3.740); TOTAL PROTEIN 6.4 GM/DL (6.4-8.2)
== END ==
LOC: M LAB 08:36
PROVIDERS: ATTEND Nurse Practitioner Family
DX: R73.03 Prediabetes (principal); E87.5 Hyperkalemia; Z79.899 Other long term (current) drug therapy; E61.2 Magnesium deficiency; E78.2 Mixed hyperlipidemia

== ENCOUNTER → 2021-08-21 | Outpatient (CLI) | payer MEDICARE, MEDICAID ==
[~2021-08-21] MED LIST changes: -MONT10TA10 PO; +MONT10TA97 PO
[2021-08-21 09:19] LABS: BASO % 0.4 % (0.0-1.0); EOS % 0.1 % (0.0-3.0); HEMATOCRIT 44.3 % (36.0-47.0); HEMOGLOBIN 14.2 g/dl (12.0-15.5); LYMPH # 0.7 10^3/uL (1.5-5.0); LYMPH % 6.8 % (24.0-44.0); MEAN CORPUSCULAR HEMOGLOBIN 31.1 pg (27.0-33.0); MEAN CORPUSCULAR HGB CONC 32.1 g/dl (32.0-36.5); MEAN CORPUSCULAR VOLUME 96.9 fl (80.0-96.0); MONO # 0.4 10^3/uL (0.0-0.8); MONO % 4.1 % (2.0-8.0); NEUTROPHILS # 8.9 10^3/uL (1.5-8.5); NEUTROPHILS % 88.3 % (36.0-66.0); PLATELET COUNT, AUTOMATED 279 10^3/uL (150-450); RED BLOOD COUNT 4.57 10^6/uL (4.00-5.40)
[2021-08-21 09:39] LABS: HEMOGLOBIN A1c 5.8 %
[2021-08-21 09:57] LABS: ALBUMIN 3.3 GM/DL (3.2-5.2); BILIRUBIN,TOTAL 0.4 MG/DL (0.2-1.0); CALCIUM LEVEL 9.2 MG/DL (8.8-10.2); CHOLESTEROL RISK RATIO 2.625 (<5); CREATININE FOR GFR 1.03 MG/DL (0.55-1.30); GLOMERULAR FILTRATION RATE 56.4 (>39); MAGNESIUM LEVEL 1.8 MG/DL (1.8-2.4); POTASSIUM SERUM 4.8 MEQ/L (3.5-5.1); THYROID STIMULATING HORMONE 0.753 uIU/ML (0.358-3.740); TOTAL PROTEIN 6.4 GM/DL (6.4-8.2)
== END ==
LOC: M LAB 08:21
PROVIDERS: ATTEND Nurse Practitioner Family
DX: Z00.01 Encounter for general adult medical examination with abnormal findings (principal); R73.03 Prediabetes; I10 Essential (primary) hypertension; E78.2 Mixed hyperlipidemia; E61.2 Magnesium deficiency; Z13.29 Encounter for screening for other suspected endocrine disorder

== ENCOUNTER → 2021-09-05 | Outpatient (CLI) | payer MEDICARE, MEDICAID | LOC: M RAD 10:11 | PROVIDERS: ATTEND Nurse Practitioner Family | DX: R91.8 Other nonspecific abnormal finding of lung field (principal); J44.9 Chronic obstructive pulmonary disease, unspecified; K44.9 Diaphragmatic hernia without obstruction or gangrene; F17.210 Nicotine dependence, cigarettes, uncomplicated ==

== ENCOUNTER 2021-10-24 18:45 | Emergency (ER) | payer MEDICARE, MEDICAID ==
[2021-10-24] MEDS ORDERED: [UNRECOGNIZED DRUG - SUPPLY] TP (19:53)
[2021-10-24 20:00] VITALS: BP 119/58
== END 2021-10-24 20:48 | disposition home or self-care (01) ==
LOC: EDSEX 18:45 → M ED 18:45 → EDBD 18:45 → M ED 20:48
DX: S81.812A Laceration without foreign body, left lower leg, initial encounter (principal); S81.811A Laceration without foreign body, right lower leg, initial encounter; S51.011A Laceration without foreign body of right elbow, initial encounter; W01.0XXA Fall on same level from slipping, tripping and stumbling without subsequent striking against object, initial encounter; I10 Essential (primary) hypertension; E78.5 Hyperlipidemia, unspecified; J45.909 Unspecified asthma, uncomplicated; J44.9 Chronic obstructive pulmonary disease, unspecified; F17.200 Nicotine dependence, unspecified, uncomplicated; Z88.2 Allergy status to sulfonamides; Y92.009 Unspecified place in unspecified non-institutional (private) residence as the place of occurrence of the external cause; Y93.9 Activity, unspecified; Y99.9 Unspecified external cause status; Z79.51 Long term (current) use of inhaled steroids; Z79.899 Other long term (current) drug therapy

== ENCOUNTER → 2021-10-30 | Outpatient (CLI) | payer MEDICARE, MEDICAID ==
[~2021-10-30] MED LIST changes: +[UNRECOGNIZED DRUG - SUPPLY] TP
== END ==
LOC: M WUC 13:11
PROVIDERS: ATTEND Nurse Practitioner Family
DX: M25.821 Other specified joint disorders, right elbow (principal); M25.721 Osteophyte, right elbow; M25.521 Pain in right elbow

== ENCOUNTER → 2021-11-23 | Outpatient (CLI) | payer MEDICARE, MEDICAID | LOC: M RAD 13:46 | PROVIDERS: ATTEND Surgery | DX: S81.811A Laceration without foreign body, right lower leg, initial encounter (principal); S81.812A Laceration without foreign body, left lower leg, initial encounter; X58.XXXA Exposure to other specified factors, initial encounter; Y92.9 Unspecified place or not applicable; Y93.9 Activity, unspecified; Y99.9 Unspecified external cause status ==

== ENCOUNTER → 2021-12-05 | Outpatient (POV) | payer MEDICARE, MEDICAID ==
[~2021-12-05] VITALS: Ht 157.5 cm; Wt 42.7 kg
[2021-12-05 10:30] VITALS: BP 97/57
== END ==
LOC: M IRPOV 10:15
PROVIDERS: ATTEND Radiology Diagnostic Radiology
DX: L97.819 Non-pressure chronic ulcer of other part of right lower leg with unspecified severity (principal); L97.829 Non-pressure chronic ulcer of other part of left lower leg with unspecified severity; F17.210 Nicotine dependence, cigarettes, uncomplicated; I25.10 Atherosclerotic heart disease of native coronary artery without angina pectoris; Z86.718 Personal history of other venous thrombosis and embolism; Z79.82 Long term (current) use of aspirin; Z79.899 Other long term (current) drug therapy

== ENCOUNTER → 2021-12-14 | Outpatient (CLI) | payer MEDICARE, MEDICAID ==
[~2021-12-14] MED LIST changes: +ISOVUE-370 76% 100ML VIAL As Ordered ONE
== END ==
LOC: M RAD 08:04
PROVIDERS: ATTEND Surgery
DX: L97.822 Non-pressure chronic ulcer of other part of left lower leg with fat layer exposed (principal); L97.812 Non-pressure chronic ulcer of other part of right lower leg with fat layer exposed
CPT/HCPCS: 75635; Q9967

== ENCOUNTER 2021-12-17 20:31 | Inpatient (IN) | payer MEDICARE, MEDICAID ==
[~2021-12-17] VITALS: Ht 157.5 cm; Wt 47.1 kg
[~2021-12-17 20:31] MED LIST changes: -ISOVUE-370 76% 100ML VIAL As Ordered ONE
[2021-12-17 21:44] LABS: BASO % 0.1 % (0.0-1.0); HEMATOCRIT 37.7 % (36.0-47.0); HEMOGLOBIN 12.2 g/dl (12.0-15.5); LYMPH # 0.4 10^3/uL (1.5-5.0); LYMPH % 1.7 % (24.0-44.0); MEAN CORPUSCULAR HEMOGLOBIN 32.5 pg (27.0-33.0); MEAN CORPUSCULAR HGB CONC 32.4 g/dl (32.0-36.5); MEAN CORPUSCULAR VOLUME 100.5 fl (80.0-96.0); MONO # 0.7 10^3/uL (0.0-0.8); MONO % 3.1 % (2.0-8.0); NEUTROPHILS # 20.9 10^3/uL (1.5-8.5); NEUTROPHILS % 94.3 % (36.0-66.0); PLATELET COUNT, AUTOMATED 311 10^3/uL (150-450); RED BLOOD COUNT 3.75 10^6/uL (4.00-5.40); WHITE BLOOD COUNT 22.1 10^3/uL (4.0-10.0)
[2021-12-17 22:19] LABS: ALBUMIN 2.3 GM/DL (3.2-5.2); BILIRUBIN,DIRECT 0.2 MG/DL (0.0-0.2); BILIRUBIN,TOTAL 0.2 MG/DL (0.2-1.0); CALCIUM LEVEL 8.4 MG/DL (8.8-10.2); CREATININE FOR GFR 1.83 MG/DL (0.55-1.30); GLOMERULAR FILTRATION RATE 29.1 (>39); POTASSIUM SERUM 5.6 MEQ/L (3.5-5.1); TOTAL PROTEIN 5.7 GM/DL (6.4-8.2)
[2021-12-17] MEDS ORDERED: NS 1,000 ML IV ONE (22:30)
[2021-12-17 23:57] LABS: RSV AMPLIFICATION NEGATIVE (NEGATIVE)
[2021-12-18] VITALS (66 sets, daily range): BP systolic 79–130; BP diastolic 39–60
[2021-12-18] MEDS ORDERED: cefTRIAXone SOD 1 GM in D5W MINI-BAG PLUS 50 ML IV ONE (00:20)
[2021-12-18] MEDS ORDERED: ASPI81TA26 PO (00:37)
[2021-12-18] MEDS ORDERED: METO1TAB32 PO (00:40)
[2021-12-18] MEDS ORDERED: LISI5TAB11 PO (00:40)
[2021-12-18] MEDS ORDERED: ACET-897 PO (00:40)
[2021-12-18] MEDS ORDERED: HOME MED LIST COMPLETE! XX SCH (00:45)
[2021-12-18 02:40] LABS: VENOUS BASE EXCESS -13.5 (-2.0-2.0); VENOUS HCO3 12.6 MEQ/L (23.0-27.0); VENOUS O2 SATURATION 92.3 % (60.0-80.0); VENOUS PARTIAL PRESSURE O2 62.6 mmHg (30.0-50.0); VENOUS TOTAL CO2 13.5 MEQ/L (24.0-28.0)
[2021-12-18] MEDS: PIPERACILLIN/TAZOBACTAM SOD 2.25 GM in D5W MINI-BAG PLUS 50 ML IV SCH ×4 (03:00→20:24)
[2021-12-18] MEDS ORDERED: HYDROCORTISONE 100 MG/2 ML VIAL (J1720 PER 1) IV ONE (03:00)
[2021-12-18] MEDS ORDERED: ALBUTEROL SULFATE 2.5 MG/0.5 ML INH NEB SOLN NEB PRN (03:00)
[2021-12-18 03:08] LABS: CALCIUM LEVEL 7.9 MG/DL (8.8-10.2); CREATININE FOR GFR 1.54 MG/DL (0.55-1.30); GLOMERULAR FILTRATION RATE 35.5 (>39); POTASSIUM SERUM 5.2 MEQ/L (3.5-5.1)
[2021-12-18] MEDS: SODIUM BICARBONATE 150 MEQ in D5W 1,000 ML IV SCH ×2 (03:16→14:57)
[2021-12-18] MEDS: IPRATROPIUM 0.5MG/ALBUTEROL 2.5MG INH SOL UD 3ML (DUONEB) NEB SCH ×4 (03:49→19:25)
[2021-12-18] MEDS ORDERED: VANCOMYCIN HCL 1,000 MG, VIAL MATE ADAPTER 1 EACH in NS 250 ML IV ONE (04:00)
[2021-12-18 04:02] LABS: CREATININE,RANDOM URINE 96.6 MG/DL
[2021-12-18] MEDS ORDERED: NS 500 ML IV ONE ×2 (04:45→06:15)
[2021-12-18] MEDS ORDERED: NOREPINEPHRINE 4 MG/4 ML AMP As Ordered ONE ×2 (07:01→07:03)
[2021-12-18] MEDS: NOREPINEPHRINE/DEXTROSE 8 MG in IV 1 EA IV SCH (07:05)
[2021-12-18 08:50] LABS: ABG BASE EXCESS -11.6 (-2.0-2.0); ABG PARTIAL PRESSURE CO2 30.8 mmHg (35.0-45.0); ABG PARTIAL PRESSURE O2 135.3 mmHg (75.0-100.0); ABG STANDARD HCO3 15.3 MEQ/L (22.0-26.0); ABG TOTAL CO2 14.9 MEQ/L (23.0-31.0); ABG pH (ARTERIAL) 7.275 UNITS (7.350-7.450)
[2021-12-18] MEDS ORDERED: ASPIRIN 300 MG SUPP PR SCH (09:00)
[2021-12-18] MEDS ORDERED: PANTOPRAZOLE 40MG VIAL IV SCH (09:00)
[2021-12-18] MEDS: HEPARIN SOD (PORCINE) 5000UNITS/ML 1ML VIAL/SYRINGE SQ SCH ×2 (10:05→20:25)
[2021-12-18 12:46] LABS: CALCIUM LEVEL 8.3 MG/DL (8.8-10.2); CREATININE FOR GFR 1.21 MG/DL (0.55-1.30); GLOMERULAR FILTRATION RATE 46.8 (>39); POTASSIUM SERUM 4.7 MEQ/L (3.5-5.1)
[2021-12-18] MEDS ORDERED: NOREPINEPHRINE/DEXTROSE 8 MG in IV 1 EA IV SCH (19:00)
[2021-12-19] VITALS (63 sets, daily range): BP systolic 88–124; BP diastolic 42–63; O2SAT 99
[2021-12-19] MEDS: SODIUM BICARBONATE 150 MEQ in D5W 1,000 ML IV SCH (01:50)
[2021-12-19] MEDS: IPRATROPIUM 0.5MG/ALBUTEROL 2.5MG INH SOL UD 3ML (DUONEB) NEB SCH ×4 (02:00→19:32)
[2021-12-19] MEDS: PIPERACILLIN/TAZOBACTAM SOD 2.25 GM in D5W MINI-BAG PLUS 50 ML IV SCH ×4 (02:02→20:09)
[2021-12-19 04:09] LABS: BASO % 0.1 % (0.0-1.0); EOS % 0.1 % (0.0-3.0); HEMATOCRIT 28.7 % (36.0-47.0); LYMPH # 0.6 10^3/uL (1.5-5.0); LYMPH % 3.7 % (24.0-44.0); MEAN CORPUSCULAR HEMOGLOBIN 32.1 pg (27.0-33.0); MEAN CORPUSCULAR HGB CONC 33.1 g/dl (32.0-36.5); MONO # 0.9 10^3/uL (0.0-0.8); MONO % 5.8 % (2.0-8.0); NEUTROPHILS # 13.7 10^3/uL (1.5-8.5); NEUTROPHILS % 89.6 % (36.0-66.0); PLATELET COUNT, AUTOMATED 256 10^3/uL (150-450); RED BLOOD COUNT 2.96 10^6/uL (4.00-5.40); WHITE BLOOD COUNT 15.2 10^3/uL (4.0-10.0)
[2021-12-19 04:21] LABS: HEMOGLOBIN 9.5 g/dl (12.0-15.5)
[2021-12-19 04:35] LABS: ALBUMIN 1.6 GM/DL (3.2-5.2); ALT/SGPT 19 U/L (12-78); BILIRUBIN,TOTAL 0.2 MG/DL (0.2-1.0); BLOOD UREA NITROGEN 30 MG/DL (7-18); CALCIUM LEVEL 7.3 MG/DL (8.8-10.2); CARBON DIOXIDE LEVEL 29 MEQ/L (21-32); CHLORIDE LEVEL 105 MEQ/L (98-107); GLOMERULAR FILTRATION RATE > 60.0 (>39); GLUCOSE, FASTING 169 MG/DL (70-100); MAGNESIUM LEVEL 1.4 MG/DL (1.8-2.4); POTASSIUM SERUM 3.6 MEQ/L (3.5-5.1); SODIUM LEVEL 142 MEQ/L (136-145); TOTAL PROTEIN 4.5 GM/DL (6.4-8.2)
[2021-12-19] MEDS: MAG SULF 1GM/100ML (MAG RUN) 1 GM in IV 1 EA IV SCH ×2 (06:31→08:08)
[2021-12-19] MEDS ORDERED: VANCOMYCIN HCL 500 MG in D5W MINI-BAG PLUS 100 ML IV SCH (08:00)
[2021-12-19] MEDS: NOREPINEPHRINE/DEXTROSE 8 MG in IV 1 EA IV SCH (08:27)
[2021-12-19] MEDS: ASPIRIN 325 MG TAB PO SCH (10:28)
[2021-12-19] MEDS: HEPARIN SOD (PORCINE) 5000UNITS/ML 1ML VIAL/SYRINGE SQ SCH ×2 (10:28→20:10)
[2021-12-19] MEDS: GABAPENTIN 300 MG CAP PO SCH ×3 (11:41→20:10)
[2021-12-19] MEDS: HYDROCORTISONE 100 MG/2 ML VIAL (J1720 PER 1) IV SCH ×2 (13:38→17:41)
[2021-12-19] MEDS ORDERED: fentaNYL 100 MCG/2 ML INJECTION IV ONE (17:30)
[2021-12-19] MEDS ORDERED: GABAPENTIN 300 MG CAP PO SCH (21:00)
[2021-12-20] VITALS (22 sets, daily range): BP systolic 92–129; BP diastolic 46–71; O2SAT 93–94
[2021-12-20] MEDS: HYDROCORTISONE 100 MG/2 ML VIAL (J1720 PER 1) IV SCH ×3 (00:20→13:00)
[2021-12-20] MEDS: IPRATROPIUM 0.5MG/ALBUTEROL 2.5MG INH SOL UD 3ML (DUONEB) NEB SCH ×4 (01:09→19:20)
[2021-12-20] MEDS: PIPERACILLIN/TAZOBACTAM SOD 2.25 GM in D5W MINI-BAG PLUS 50 ML IV SCH ×2 (02:00→08:12)
[2021-12-20 04:22] LABS: BASO % 0.1 % (0.0-1.0); HEMATOCRIT 26.4 % (36.0-47.0); HEMOGLOBIN 8.7 g/dl (12.0-15.5); LYMPH # 0.1 10^3/uL (1.5-5.0); LYMPH % 1.9 % (24.0-44.0); MEAN CORPUSCULAR HEMOGLOBIN 31.8 pg (27.0-33.0); MEAN CORPUSCULAR VOLUME 96.4 fl (80.0-96.0); MONO # 0.2 10^3/uL (0.0-0.8); MONO % 3.2 % (2.0-8.0); NEUTROPHILS # 6.8 10^3/uL (1.5-8.5); NEUTROPHILS % 94.2 % (36.0-66.0); PLATELET COUNT, AUTOMATED 214 10^3/uL (150-450); RED BLOOD COUNT 2.74 10^6/uL (4.00-5.40); WHITE BLOOD COUNT 7.2 10^3/uL (4.0-10.0)
[2021-12-20 04:55] LABS: ALBUMIN 1.5 GM/DL (3.2-5.2); ALT/SGPT 48 U/L (12-78); BILIRUBIN,TOTAL 0.4 MG/DL (0.2-1.0); BLOOD UREA NITROGEN 14 MG/DL (7-18); CALCIUM LEVEL 7.9 MG/DL (8.8-10.2); CARBON DIOXIDE LEVEL 30 MEQ/L (21-32); CHLORIDE LEVEL 102 MEQ/L (98-107); CREATININE FOR GFR 0.69 MG/DL (0.55-1.30); GLOMERULAR FILTRATION RATE > 60.0 (>39); GLUCOSE, FASTING 121 MG/DL (70-100); POTASSIUM SERUM 3.8 MEQ/L (3.5-5.1); SODIUM LEVEL 140 MEQ/L (136-145); TOTAL PROTEIN 4.6 GM/DL (6.4-8.2)
[2021-12-20] MEDS: ASPIRIN 325 MG TAB PO SCH (08:12)
[2021-12-20] MEDS: HEPARIN SOD (PORCINE) 5000UNITS/ML 1ML VIAL/SYRINGE SQ SCH ×2 (08:12→21:11)
[2021-12-20] MEDS: GABAPENTIN 300 MG CAP PO SCH ×3 (08:13→21:11)
[2021-12-20] MEDS ORDERED: MIDODRINE 5 MG TAB PO SCH (14:00)
[2021-12-20] MEDS ORDERED: PRED5TA PO (14:30)
[2021-12-20] MEDS: PIPERACILLIN/TAZOBACTAM SOD 3.375 GM in D5W MINI-BAG PLUS 50 ML IV SCH ×2 (16:06→21:10)
[2021-12-20] MEDS: ATORVASTATIN 20 MG TAB PO SCH (17:20)
[2021-12-20] MEDS: CETIRIZINE (ZyrTEC) 10 MG TAB PO SCH (17:20)
[2021-12-20] MEDS: predniSONE 20 MG TAB PO SCH (17:20)
[2021-12-20] MEDS ORDERED: MAG SULF 1GM/100ML (MAG RUN) 1 GM in IV 1 EA IV ONE (18:40)
[2021-12-20] MEDS: MIDODRINE 5 MG TAB PO SCH (21:11)
[2021-12-20] MEDS: FAMOTIDINE 20 MG TAB PO SCH (21:11)
[2021-12-21] VITALS: BP 100/61
[2021-12-21] MEDS: IPRATROPIUM 0.5MG/ALBUTEROL 2.5MG INH SOL UD 3ML (DUONEB) NEB SCH ×4 (00:24→19:31)
[2021-12-21] MEDS: PIPERACILLIN/TAZOBACTAM SOD 3.375 GM in D5W MINI-BAG PLUS 50 ML IV SCH ×4 (03:47→21:39)
[2021-12-21 04:00] VITALS: BP 108/54
[2021-12-21 04:54] LABS: BASO % 0.1 % (0.0-1.0); HEMATOCRIT 28.8 % (36.0-47.0); HEMOGLOBIN 9.4 g/dl (12.0-15.5); LYMPH # 0.2 10^3/uL (1.5-5.0); LYMPH % 1.6 % (24.0-44.0); MEAN CORPUSCULAR HEMOGLOBIN 31.4 pg (27.0-33.0); MEAN CORPUSCULAR HGB CONC 32.6 g/dl (32.0-36.5); MEAN CORPUSCULAR VOLUME 96.3 fl (80.0-96.0); MONO # 0.3 10^3/uL (0.0-0.8); MONO % 3.2 % (2.0-8.0); NEUTROPHILS # 8.8 10^3/uL (1.5-8.5); NEUTROPHILS % 94.4 % (36.0-66.0); PLATELET COUNT, AUTOMATED 249 10^3/uL (150-450); RED BLOOD COUNT 2.99 10^6/uL (4.00-5.40); WHITE BLOOD COUNT 9.3 10^3/uL (4.0-10.0)
[2021-12-21] MEDS: MIDODRINE 5 MG TAB PO SCH ×3 (05:05→21:38)
[2021-12-21 05:29] LABS: ALBUMIN 1.9 GM/DL (3.2-5.2); ALT/SGPT 108 U/L (12-78); BILIRUBIN,TOTAL 0.3 MG/DL (0.2-1.0); BLOOD UREA NITROGEN 15 MG/DL (7-18); CALCIUM LEVEL 8.6 MG/DL (8.8-10.2); CARBON DIOXIDE LEVEL 30 MEQ/L (21-32); CHLORIDE LEVEL 102 MEQ/L (98-107); GLOMERULAR FILTRATION RATE > 60.0 (>39); GLUCOSE, FASTING 191 MG/DL (70-100); POTASSIUM SERUM 3.5 MEQ/L (3.5-5.1); SODIUM LEVEL 139 MEQ/L (136-145); TOTAL PROTEIN 4.9 GM/DL (6.4-8.2)
[2021-12-21 08:00] VITALS: BP 112/54
[2021-12-21] MEDS ORDERED: POTASSIUM CHLORIDE 10MEQ SR TABLET PO ONE (08:45)
[2021-12-21] MEDS: predniSONE 20 MG TAB PO SCH (08:54)
[2021-12-21] MEDS: ATORVASTATIN 20 MG TAB PO SCH (08:54)
[2021-12-21] MEDS: HEPARIN SOD (PORCINE) 5000UNITS/ML 1ML VIAL/SYRINGE SQ SCH ×2 (08:54→21:38)
[2021-12-21] MEDS: GABAPENTIN 300 MG CAP PO SCH ×3 (08:54→21:38)
[2021-12-21] MEDS: CETIRIZINE (ZyrTEC) 10 MG TAB PO SCH (08:55)
[2021-12-21] MEDS: FAMOTIDINE 20 MG TAB PO SCH ×2 (08:55→21:39)
[2021-12-21] MEDS: ASPIRIN 325 MG TAB PO SCH (08:55)
[2021-12-21 09:19] LABS: MAGNESIUM LEVEL 2.1 MG/DL (1.8-2.4)
[2021-12-21 12:42] VITALS: BP 100/54
[2021-12-21 16:00] VITALS: BP 111/51
[2021-12-21 20:14] VITALS: BP 121/56
[2021-12-22 00:21] VITALS: BP 121/57
[2021-12-22] MEDS: IPRATROPIUM 0.5MG/ALBUTEROL 2.5MG INH SOL UD 3ML (DUONEB) NEB SCH ×3 (02:00→13:18)
[2021-12-22] MEDS: PIPERACILLIN/TAZOBACTAM SOD 3.375 GM in D5W MINI-BAG PLUS 50 ML IV SCH ×2 (03:24→08:36)
[2021-12-22 04:18] VITALS: BP 110/55
[2021-12-22] MEDS ORDERED: LevoFLOXacin 750 MG TABLET PO SCH (06:00)
[2021-12-22] MEDS: MIDODRINE 5 MG TAB PO SCH (06:01)
[2021-12-22 07:50] VITALS: BP 120/60
[2021-12-22] MEDS: ATORVASTATIN 20 MG TAB PO SCH (08:35)
[2021-12-22] MEDS: GABAPENTIN 300 MG CAP PO SCH (08:35)
[2021-12-22] MEDS: predniSONE 20 MG TAB PO SCH (08:35)
[2021-12-22] MEDS: HEPARIN SOD (PORCINE) 5000UNITS/ML 1ML VIAL/SYRINGE SQ SCH (08:36)
[2021-12-22] MEDS: ASPIRIN 325 MG TAB PO SCH (08:36)
[2021-12-22] MEDS: CETIRIZINE (ZyrTEC) 10 MG TAB PO SCH (08:36)
[2021-12-22] MEDS: FAMOTIDINE 20 MG TAB PO SCH (08:36)
[2021-12-22] MEDS ORDERED: predniSONE 5 MG TAB PO SCH (09:00)
[2021-12-22] MEDS ORDERED: LEVO750T13 PO (09:18)
[2021-12-22] MEDS ORDERED: CEPH250T PO (09:18)
[2021-12-22 12:06] VITALS: BP 119/56
[2021-12-22] MEDS ORDERED: CEPHALEXIN 250MG CAPSULE PO SCH (13:00)
== END 2021-12-22 14:17 | disposition home or self-care (01) | DRG 871 ==
LOC: M ED 20:31 → M ED INP 12-18 01:38 → M ICU 12-18 08:02 → M PCU 12-21 15:58
PROVIDERS: ADMIT Internal Medicine; ATTEND Internal Medicine
DX: A41.9 Sepsis, unspecified organism (principal); G93.41 Metabolic encephalopathy; R57.1 Hypovolemic shock; R65.21 Severe sepsis with septic shock; A09 Infectious gastroenteritis and colitis, unspecified; N39.0 Urinary tract infection, site not specified; N17.9 Acute kidney failure, unspecified; E87.2 Acidosis; E46 Unspecified protein-calorie malnutrition; L03.116 Cellulitis of left lower limb; L03.115 Cellulitis of right lower limb; K44.9 Diaphragmatic hernia without obstruction or gangrene; J44.9 Chronic obstructive pulmonary disease, unspecified; N18.9 Chronic kidney disease, unspecified; M06.9 Rheumatoid arthritis, unspecified; I12.9 Hypertensive chronic kidney disease with stage 1 through stage 4 chronic kidney disease, or unspecified chronic kidney disease; F17.210 Nicotine dependence, cigarettes, uncomplicated; B96.1 Klebsiella pneumoniae [K. pneumoniae] as the cause of diseases classified elsewhere; Z79.899 Other long term (current) drug therapy; Z79.82 Long term (current) use of aspirin; E87.5 Hyperkalemia; Z79.52 Long term (current) use of systemic steroids

== ENCOUNTER → 2021-12-26 | Outpatient (POV) | payer MEDICARE, MEDICAID ==
[~2021-12-26] VITALS: Ht 157.5 cm; Wt 43.6 kg
[~2021-12-26] MED LIST changes: +ACET-897 PO; +ASPI81TA26 PO; +CEPH250T PO; +LEVO750T13 PO; +LISI5TAB11 PO
[2021-12-26 13:20] VITALS: BP 121/56
== END ==
LOC: M IRPOV 13:13
PROVIDERS: ATTEND Radiology Diagnostic Radiology
DX: I70.25 Atherosclerosis of native arteries of other extremities with ulceration (principal); L97.909 Non-pressure chronic ulcer of unspecified part of unspecified lower leg with unspecified severity

== ENCOUNTER → 2022-01-07 | Outpatient (CLI) | payer MEDICARE, MEDICAID | LOC: M LABSMTC 11:32 | PROVIDERS: ATTEND Anesthesiology | DX: Z01.818 Encounter for other preprocedural examination (principal); Z11.52 Encounter for screening for COVID-19 ==

== ENCOUNTER → 2022-01-11 | Outpatient (CLI) | payer MEDICARE, MEDICAID ==
[~2022-01-11] MED LIST changes: +ISOVUE-300 61% 50ML VIAL As Ordered ONE; +LIDOCAINE 1% MDV 20ML VIAL As Ordered ONE; +MIDAZOLAM INJ 2MG/2ML VIAL (J2250 PER 1MG) As Ordered ONE; +NS 1,000 ML IV SCH; +PRED25TA PO; +diphenhydrAMINE 50MG/ML VIAL (J1200) As Ordered ONE; +fentaNYL 100 MCG/2 ML INJECTION As Ordered ONE
[2022-01-11 14:25] VITALS: BP 114/57
== END ==
LOC: M IRPRO 06:23
PROVIDERS: ATTEND Radiology Diagnostic Radiology
DX: I70.222 Atherosclerosis of native arteries of extremities with rest pain, left leg (principal); I70.249 Atherosclerosis of native arteries of left leg with ulceration of unspecified site; L97.929 Non-pressure chronic ulcer of unspecified part of left lower leg with unspecified severity; I70.0 Atherosclerosis of aorta; Z79.82 Long term (current) use of aspirin; Z79.899 Other long term (current) drug therapy; Z88.2 Allergy status to sulfonamides
CPT/HCPCS: 36245; 75710; 99152; 99153; C1769; C1887; C1894; J1644; J2250; J3010; Q9967

== ENCOUNTER → 2022-02-08 | Outpatient (CLI) | payer MEDICARE, MEDICAID ==
[~2022-02-08] MED LIST changes: -ISOVUE-300 61% 50ML VIAL As Ordered ONE; +ISOVUE-370 76% 25ML SYRINGE As Ordered ONE; +LEVO1TAB40 PO; -LEVO750T13 PO; -LIDOCAINE 1% MDV 20ML VIAL As Ordered ONE; -MIDAZOLAM INJ 2MG/2ML VIAL (J2250 PER 1MG) As Ordered ONE; -NS 1,000 ML IV SCH; -diphenhydrAMINE 50MG/ML VIAL (J1200) As Ordered ONE; -fentaNYL 100 MCG/2 ML INJECTION As Ordered ONE
== END ==
LOC: M RAD 08:50
PROVIDERS: ATTEND Nurse Practitioner Family
DX: I70.223 Atherosclerosis of native arteries of extremities with rest pain, bilateral legs (principal)
CPT/HCPCS: 70496; 70498; Q9967

== ENCOUNTER 2022-03-10 11:00 | Emergency (ER) | payer MEDICARE, MEDICAID ==
[~2022-03-10] VITALS: Ht 154.9 cm; Wt 40.6 kg
[~2022-03-10 11:00] MED LIST changes: -ISOVUE-370 76% 25ML SYRINGE As Ordered ONE
[2022-03-10 12:43] VITALS: O2SAT 94
[2022-03-10] MEDS ORDERED: NIRMATRELVIR/RITONAVIR CO-PACK (EMERGENCY USE AUTH) PO SCH ×2 (13:15→21:00)
[2022-03-10 14:26] VITALS: BP 106/59
== END 2022-03-10 14:28 | disposition home or self-care (01) ==
LOC: M ED 11:00
DX: U07.1 COVID-19 (principal); I10 Essential (primary) hypertension; E78.5 Hyperlipidemia, unspecified; J45.909 Unspecified asthma, uncomplicated; J44.9 Chronic obstructive pulmonary disease, unspecified; I25.2 Old myocardial infarction; F17.200 Nicotine dependence, unspecified, uncomplicated; Z88.2 Allergy status to sulfonamides; Z79.899 Other long term (current) drug therapy

== ENCOUNTER 2022-03-16 13:38 | Inpatient (IN) | payer MEDICARE, MEDICAID ==
[~2022-03-16] VITALS: Ht 157.5 cm; Wt 41.2 kg
[2022-03-16] VITALS (8 sets, daily range): BP systolic 83–102; BP diastolic 50–56
[2022-03-16 14:00] LABS: HEMATOCRIT 38.8 % (36.0-47.0); HEMOGLOBIN 12.5 g/dl (12.0-15.5); MEAN CORPUSCULAR HEMOGLOBIN 30.6 pg (27.0-33.0); MEAN CORPUSCULAR HGB CONC 32.2 g/dl (32.0-36.5); MEAN CORPUSCULAR VOLUME 95.1 fl (80.0-96.0); PLATELET COUNT, AUTOMATED 271 10^3/uL (150-450); RED BLOOD COUNT 4.08 10^6/uL (4.00-5.40); WHITE BLOOD COUNT 16.7 10^3/uL (4.0-10.0)
[2022-03-16] MEDS: COMBIVENT RESPIMAT 100-20MCG INHALER 4GM INH SCH ×3 (14:06→20:27)
[2022-03-16] MEDS ORDERED: NS 1,280 ML in IV 1 EA IV ONE (14:15)
[2022-03-16] MEDS ORDERED: cefTRIAXone SOD 2 GM in D5W MINI-BAG PLUS 50 ML IV ONE (14:15)
[2022-03-16 14:19] LABS: INR 1.02; PROTHROMBIN TIME 13.8 SECONDS (12.7-14.5)
[2022-03-16 14:23] LABS: LYMPHOCYTES 1 % (16-44); MONOCYTES 1 % (0-5); NEUTROPHILS 96 % (28-66); PLATELET ESTIMATE NORMAL (NORMAL)
[2022-03-16 14:25] LABS: BURR CELLS 1+; OVALOCYTES 1+
[2022-03-16 14:49] LABS: CK-MB VALUE MASS < 1.0 NG/ML (<3.6); CPK CREATINE PHOSPHOKINASE 40 U/L (26-192)
[2022-03-16 15:02] LABS: BILIRUBIN,DIRECT 0.2 MG/DL (0.0-0.2); BILIRUBIN,TOTAL 0.6 MG/DL (0.2-1.0); CALCIUM LEVEL 8.6 MG/DL (8.8-10.2); CREATININE FOR GFR 1.09 MG/DL (0.55-1.30); GLOMERULAR FILTRATION RATE 52.8 (>39); POTASSIUM SERUM 4.4 MEQ/L (3.5-5.1); THYROID STIMULATING HORMONE 0.758 uIU/ML (0.358-3.740); TOTAL PROTEIN 5.8 GM/DL (6.4-8.2)
[2022-03-16] MEDS ORDERED: VANCOMYCIN HCL IV ONE (16:40)
[2022-03-16] MEDS ORDERED: FLUID PLACE HOLDER IV ONE (16:40)
[2022-03-16] MEDS ORDERED: ACETAMINOPHEN TAB 650MG DOSE (2X325MG) PO PRN (16:55)
[2022-03-16] MEDS ORDERED: VANCOMYCIN HCL 1,000 MG, VIAL MATE ADAPTER 1 EACH in D5W 250 ML IV ONE (18:00)
[2022-03-16] MEDS ORDERED: ASCO500T PO (18:17)
[2022-03-16] MEDS ORDERED: MAGN500T12 PO (18:17)
[2022-03-16] MEDS ORDERED: HOME MED LIST COMPLETE! XX SCH (18:20)
[2022-03-16] MEDS: predniSONE 10 MG TAB PO SCH (18:44)
[2022-03-16] MEDS: PANTOPRAZOLE 40MG TAB (PROTONIX) PO SCH (18:45)
[2022-03-16] MEDS: IPRATROPIUM 0.5MG/ALBUTEROL 2.5MG INH SOL UD 3ML (DUONEB) NEB SCH (20:00)
[2022-03-16] MEDS: SYMBICORT 160/4.5MCG INHALER 6GM INH SCH (20:31)
[2022-03-16] MEDS: GABAPENTIN 100 MG CAP PO SCH (21:20)
[2022-03-16] MEDS: ENOXAPARIN 30MG/0.3ML SYRINGE (J1650 PER 10MG) SC SCH (21:20)
[2022-03-17] VITALS (22 sets, daily range): BP systolic 92–138; BP diastolic 50–62
[2022-03-17 05:40] LABS: ABG BASE EXCESS -1.9 (-2.0-2.0); ABG HCO3 21.8 MEQ/L (22.0-26.0); ABG O2 SATURATION 93.7 % (95.0-99.0); ABG PARTIAL PRESSURE CO2 33.9 mmHg (35.0-45.0); ABG PARTIAL PRESSURE O2 67.5 mmHg (75.0-100.0); ABG STANDARD HCO3 22.8 MEQ/L (22.0-26.0); ABG TOTAL CO2 22.9 MEQ/L (23.0-31.0); ABG pH (ARTERIAL) 7.427 UNITS (7.350-7.450)
[2022-03-17 06:37] LABS: HEMATOCRIT 33.6 % (36.0-47.0); HEMOGLOBIN 11.1 g/dl (12.0-15.5); MEAN CORPUSCULAR HEMOGLOBIN 30.4 pg (27.0-33.0); MEAN CORPUSCULAR VOLUME 92.1 fl (80.0-96.0); PLATELET COUNT, AUTOMATED 271 10^3/uL (150-450); RED BLOOD COUNT 3.65 10^6/uL (4.00-5.40); WHITE BLOOD COUNT 13.1 10^3/uL (4.0-10.0)
[2022-03-17 07:06] LABS: LYMPHOCYTES 2 % (16-44); MONOCYTES 1 % (0-5); NEUTROPHILS 97 % (28-66)
[2022-03-17 07:09] LABS: PLATELET ESTIMATE NORMAL (NORMAL)
[2022-03-17 07:28] LABS: BLOOD UREA NITROGEN 43 MG/DL (7-18); CALCIUM LEVEL 8.7 MG/DL (8.8-10.2); CARBON DIOXIDE LEVEL 22 MEQ/L (21-32); CHLORIDE LEVEL 99 MEQ/L (98-107); CREATININE FOR GFR 0.96 MG/DL (0.55-1.30); GLOMERULAR FILTRATION RATE > 60.0 (>39); GLUCOSE, FASTING 136 MG/DL (70-100); POTASSIUM SERUM 3.1 MEQ/L (3.5-5.1); SODIUM LEVEL 129 MEQ/L (136-145)
[2022-03-17] MEDS: SYMBICORT 160/4.5MCG INHALER 6GM INH SCH ×2 (07:33→19:48)
[2022-03-17] MEDS: IPRATROPIUM 0.5MG/ALBUTEROL 2.5MG INH SOL UD 3ML (DUONEB) NEB SCH ×4 (07:33→19:48)
[2022-03-17] MEDS: TIOTROPIUM INHALER/CAPSULE (SPIRIVA) INH SCH (07:33)
[2022-03-17] MEDS: VANCOMYCIN HCL 500 MG in D5W MINI-BAG PLUS 100 ML IV SCH ×2 (08:21→21:10)
[2022-03-17] MEDS: predniSONE 10 MG TAB PO SCH (08:22)
[2022-03-17] MEDS: GABAPENTIN 100 MG CAP PO SCH ×3 (08:22→21:10)
[2022-03-17] MEDS: PANTOPRAZOLE 40MG TAB (PROTONIX) PO SCH (08:22)
[2022-03-17] MEDS ORDERED: POTASSIUM CHLORIDE 10MEQ SR TABLET PO ONE ×3 (11:30→17:30)
[2022-03-17] MEDS ORDERED: NS 1,000 ML IV ONE (12:00)
[2022-03-17 12:18] LABS: OSMOLALITY URINE 510 MOSM/KG (50-1400)
[2022-03-17 12:22] LABS: SODIUM,RANDOM URINE < 10 MEQ/L
[2022-03-17 14:41] LABS: CHOLESTEROL RISK RATIO 4.466 (<5)
[2022-03-17] MEDS: cefTRIAXone SOD 2 GM in D5W MINI-BAG PLUS 50 ML IV SCH (15:36)
[2022-03-17 16:00] LABS: BLOOD UREA NITROGEN 39 MG/DL (7-18); CALCIUM LEVEL 8.1 MG/DL (8.8-10.2); CARBON DIOXIDE LEVEL 21 MEQ/L (21-32); CHLORIDE LEVEL 103 MEQ/L (98-107); CREATININE FOR GFR 0.81 MG/DL (0.55-1.30); GLOMERULAR FILTRATION RATE > 60.0 (>39); GLUCOSE, FASTING 171 MG/DL (70-100); POTASSIUM SERUM 3.3 MEQ/L (3.5-5.1); SODIUM LEVEL 132 MEQ/L (136-145)
[2022-03-17] MEDS: ENOXAPARIN 30MG/0.3ML SYRINGE (J1650 PER 10MG) SC SCH (21:10)
[2022-03-18] VITALS: BP 118/56
[2022-03-18 04:00] VITALS: BP 116/55
[2022-03-18] MEDS: SYMBICORT 160/4.5MCG INHALER 6GM INH SCH ×2 (07:23→20:07)
[2022-03-18] MEDS: IPRATROPIUM 0.5MG/ALBUTEROL 2.5MG INH SOL UD 3ML (DUONEB) NEB SCH ×4 (07:23→20:00)
[2022-03-18] MEDS: TIOTROPIUM INHALER/CAPSULE (SPIRIVA) INH SCH (07:24)
[2022-03-18 08:00] VITALS: BP 127/58
[2022-03-18 08:09] LABS: HEMATOCRIT 32.5 % (36.0-47.0); HEMOGLOBIN 10.6 g/dl (12.0-15.5); LYMPH # 0.2 10^3/uL (1.5-5.0); LYMPH % 1.6 % (24.0-44.0); MEAN CORPUSCULAR HEMOGLOBIN 30.3 pg (27.0-33.0); MEAN CORPUSCULAR HGB CONC 32.6 g/dl (32.0-36.5); MEAN CORPUSCULAR VOLUME 92.9 fl (80.0-96.0); MONO # 0.5 10^3/uL (0.0-0.8); MONO % 3.3 % (2.0-8.0); NEUTROPHILS # 12.7 10^3/uL (1.5-8.5); NEUTROPHILS % 94.6 % (36.0-66.0); PLATELET COUNT, AUTOMATED 304 10^3/uL (150-450); WHITE BLOOD COUNT 13.4 10^3/uL (4.0-10.0)
[2022-03-18 08:36] LABS: BLOOD UREA NITROGEN 27 MG/DL (7-18); CALCIUM LEVEL 8.6 MG/DL (8.8-10.2); CARBON DIOXIDE LEVEL 21 MEQ/L (21-32); CHLORIDE LEVEL 108 MEQ/L (98-107); CREATININE FOR GFR 0.72 MG/DL (0.55-1.30); GLOMERULAR FILTRATION RATE > 60.0 (>39); GLUCOSE, FASTING 159 MG/DL (70-100); MAGNESIUM LEVEL 1.9 MG/DL (1.8-2.4); POTASSIUM SERUM 5.5 MEQ/L (3.5-5.1); SODIUM LEVEL 136 MEQ/L (136-145)
[2022-03-18] MEDS: predniSONE 10 MG TAB PO SCH (09:09)
[2022-03-18] MEDS: GABAPENTIN 100 MG CAP PO SCH ×3 (09:09→20:18)
[2022-03-18] MEDS: VANCOMYCIN HCL 500 MG in D5W MINI-BAG PLUS 100 ML IV SCH ×2 (09:09→20:18)
[2022-03-18] MEDS: PANTOPRAZOLE 40MG TAB (PROTONIX) PO SCH (09:09)
[2022-03-18 15:55] VITALS: BP 96/44
[2022-03-18] MEDS: METOPROLOL SUCC *XL* 25MG TAB (TopROL *XL*) PO SCH (15:57)
[2022-03-18] MEDS: cefTRIAXone SOD 2 GM in D5W MINI-BAG PLUS 50 ML IV SCH (15:58)
[2022-03-18 16:26] LABS: BLOOD UREA NITROGEN 26 MG/DL (7-18); CALCIUM LEVEL 8.4 MG/DL (8.8-10.2); CARBON DIOXIDE LEVEL 22 MEQ/L (21-32); CHLORIDE LEVEL 106 MEQ/L (98-107); CREATININE FOR GFR 0.66 MG/DL (0.55-1.30); GLOMERULAR FILTRATION RATE > 60.0 (>39); GLUCOSE, FASTING 147 MG/DL (70-100); POTASSIUM SERUM 5.4 MEQ/L (3.5-5.1); SODIUM LEVEL 134 MEQ/L (136-145)
[2022-03-18] MEDS: ENOXAPARIN 30MG/0.3ML SYRINGE (J1650 PER 10MG) SC SCH (20:18)
[2022-03-18 21:00] VITALS: BP 110/54
[2022-03-19 05:00] VITALS: BP 109/53
[2022-03-19] MEDS ORDERED: PATIROMER SORBITEX CALCIUM 8.4 GM POWDER PACKET (VELTASSA) PO ONE (06:55)
[2022-03-19 08:00] VITALS: BP 136/63
[2022-03-19] MEDS: IPRATROPIUM 0.5MG/ALBUTEROL 2.5MG INH SOL UD 3ML (DUONEB) NEB SCH ×4 (08:00→20:00)
[2022-03-19 08:23] LABS: BASO % 0.1 % (0.0-1.0); HEMATOCRIT 34.1 % (36.0-47.0); HEMOGLOBIN 10.8 g/dl (12.0-15.5); LYMPH # 0.3 10^3/uL (1.5-5.0); LYMPH % 2.2 % (24.0-44.0); MEAN CORPUSCULAR HEMOGLOBIN 30.3 pg (27.0-33.0); MEAN CORPUSCULAR HGB CONC 31.7 g/dl (32.0-36.5); MEAN CORPUSCULAR VOLUME 95.8 fl (80.0-96.0); MONO # 0.4 10^3/uL (0.0-0.8); NEUTROPHILS # 13.6 10^3/uL (1.5-8.5); NEUTROPHILS % 93.7 % (36.0-66.0); PLATELET COUNT, AUTOMATED 320 10^3/uL (150-450); RED BLOOD COUNT 3.56 10^6/uL (4.00-5.40); WHITE BLOOD COUNT 14.5 10^3/uL (4.0-10.0)
[2022-03-19] MEDS: TIOTROPIUM INHALER/CAPSULE (SPIRIVA) INH SCH (08:51)
[2022-03-19] MEDS: SYMBICORT 160/4.5MCG INHALER 6GM INH SCH ×2 (08:51→20:07)
[2022-03-19 08:55] LABS: BLOOD UREA NITROGEN 23 MG/DL (7-18); CALCIUM LEVEL 9.1 MG/DL (8.8-10.2); CARBON DIOXIDE LEVEL 25 MEQ/L (21-32); CHLORIDE LEVEL 105 MEQ/L (98-107); CREATININE FOR GFR 0.67 MG/DL (0.55-1.30); GLOMERULAR FILTRATION RATE > 60.0 (>39); GLUCOSE, FASTING 104 MG/DL (70-100); MAGNESIUM LEVEL 1.8 MG/DL (1.8-2.4); POTASSIUM SERUM 5.2 MEQ/L (3.5-5.1); SODIUM LEVEL 135 MEQ/L (136-145)
[2022-03-19] MEDS ORDERED: CEFDINIR 300 MG CAP (OMNICEF) PO SCH (09:00)
[2022-03-19] MEDS: PANTOPRAZOLE 40MG TAB (PROTONIX) PO SCH (09:31)
[2022-03-19] MEDS: GABAPENTIN 100 MG CAP PO SCH ×3 (09:31→20:57)
[2022-03-19] MEDS: predniSONE 10 MG TAB PO SCH (09:31)
[2022-03-19 09:34] VITALS: BP 136/63
[2022-03-19] MEDS: METOPROLOL SUCC *XL* 25MG TAB (TopROL *XL*) PO SCH (09:34)
[2022-03-19] MEDS: VANCOMYCIN HCL 500 MG in D5W MINI-BAG PLUS 100 ML IV SCH (09:34)
[2022-03-19] MEDS: ASPIRIN 81MG ENTERIC TABLET PO SCH (09:34)
[2022-03-19 10:25] LABS: CORTISOL AM 52.6 UG/DL (4.3-22.4)
[2022-03-19] MEDS: LACTOBACILLUS ACIDOPHILUS CAP (BACID) PO SCH (11:49)
[2022-03-19] MEDS ORDERED: MAG SULF 1GM/100ML (MAG RUN) 1 GM in IV 1 EA IV ONE (14:00)
[2022-03-19] MEDS ORDERED: cefTRIAXone SOD 2 GM in D5W MINI-BAG PLUS 50 ML IV SCH (15:00)
[2022-03-19 16:00] VITALS: BP 105/52
[2022-03-19 17:34] LABS: BLOOD UREA NITROGEN 22 MG/DL (7-18); CALCIUM LEVEL 9.1 MG/DL (8.8-10.2); CARBON DIOXIDE LEVEL 23 MEQ/L (21-32); CHLORIDE LEVEL 103 MEQ/L (98-107); CREATININE FOR GFR 0.72 MG/DL (0.55-1.30); GLOMERULAR FILTRATION RATE > 60.0 (>39); GLUCOSE, FASTING 146 MG/DL (70-100); POTASSIUM SERUM 4.8 MEQ/L (3.5-5.1); SODIUM LEVEL 133 MEQ/L (136-145)
[2022-03-19] MEDS ORDERED: ISOVUE-370 76% 100ML VIAL As Ordered ONE (20:20)
[2022-03-19] MEDS: ENOXAPARIN 30MG/0.3ML SYRINGE (J1650 PER 10MG) SC SCH (20:57)
[2022-03-19 21:00] VITALS: BP 122/58
[2022-03-19] MEDS ORDERED: ATORVASTATIN 20 MG TAB PO SCH (21:00)
[2022-03-20] VITALS: BP 102/44
[2022-03-20] MEDS: AMPICILLIN SOD/SULBACTAM SOD 3 GM in D5W MINI-BAG PLUS 100 ML IV SCH ×3 (00:30→12:29)
[2022-03-20 04:00] VITALS: BP 108/54
[2022-03-20 04:34] LABS: BASO % 0.1 % (0.0-1.0); HEMATOCRIT 30.1 % (36.0-47.0); HEMOGLOBIN 9.7 g/dl (12.0-15.5); LYMPH # 0.5 10^3/uL (1.5-5.0); LYMPH % 4.5 % (24.0-44.0); MEAN CORPUSCULAR HEMOGLOBIN 30.2 pg (27.0-33.0); MEAN CORPUSCULAR HGB CONC 32.2 g/dl (32.0-36.5); MEAN CORPUSCULAR VOLUME 93.8 fl (80.0-96.0); MONO # 0.5 10^3/uL (0.0-0.8); MONO % 4.9 % (2.0-8.0); NEUTROPHILS % 89.3 % (36.0-66.0); PLATELET COUNT, AUTOMATED 315 10^3/uL (150-450); RED BLOOD COUNT 3.21 10^6/uL (4.00-5.40); WHITE BLOOD COUNT 11.1 10^3/uL (4.0-10.0)
[2022-03-20 05:02] LABS: BLOOD UREA NITROGEN 22 MG/DL (7-18); CALCIUM LEVEL 8.8 MG/DL (8.8-10.2); CARBON DIOXIDE LEVEL 23 MEQ/L (21-32); CHLORIDE LEVEL 104 MEQ/L (98-107); CREATININE FOR GFR 0.62 MG/DL (0.55-1.30); GLOMERULAR FILTRATION RATE > 60.0 (>39); GLUCOSE, FASTING 89 MG/DL (70-100); MAGNESIUM LEVEL 1.9 MG/DL (1.8-2.4); POTASSIUM SERUM 4.4 MEQ/L (3.5-5.1); SODIUM LEVEL 134 MEQ/L (136-145)
[2022-03-20 07:40] VITALS: BP 98/55
[2022-03-20 08:00] VITALS: BP 105/55
[2022-03-20] MEDS: IPRATROPIUM 0.5MG/ALBUTEROL 2.5MG INH SOL UD 3ML (DUONEB) NEB SCH ×2 (08:29→11:48)
[2022-03-20] MEDS: TIOTROPIUM INHALER/CAPSULE (SPIRIVA) INH SCH (08:29)
[2022-03-20] MEDS: SYMBICORT 160/4.5MCG INHALER 6GM INH SCH (08:29)
[2022-03-20] MEDS ORDERED: METOPROLOL SUCC *XL* 25MG TAB (TopROL *XL*) PO SCH (09:00)
[2022-03-20] MEDS: predniSONE 10 MG TAB PO SCH (10:32)
[2022-03-20] MEDS: LACTOBACILLUS ACIDOPHILUS CAP (BACID) PO SCH (10:32)
[2022-03-20] MEDS: PANTOPRAZOLE 40MG TAB (PROTONIX) PO SCH (10:33)
[2022-03-20] MEDS: GABAPENTIN 100 MG CAP PO SCH (10:33)
[2022-03-20] MEDS: ASPIRIN 81MG ENTERIC TABLET PO SCH (10:33)
[2022-03-20] MEDS ORDERED: PRED5TA PO (12:11)
[2022-03-20] MEDS ORDERED: TIOT18INH INH (12:11)
[2022-03-20] MEDS ORDERED: METO1TAB32 PO (12:11)
[2022-03-20] MEDS ORDERED: PRED10TA2 PO (12:11)
[2022-03-20] MEDS ORDERED: RAMI1CAP21 PO (12:11)
[2022-03-20] MEDS ORDERED: AMOX875T2 PO (13:41)
[2022-03-20] MEDS ORDERED: PROB250C PO (18:01)
[2022-03-22] MEDS ORDERED: predniSONE 10 MG TAB PO SCH (09:00)
== END 2022-03-20 14:18 | disposition home or self-care (01) | DRG 193 ==
LOC: M ED 13:38 → M ED INP 16:37 → ENRESERV 18:18 → M ICU 19:05
PROVIDERS: ADMIT Internal Medicine Pulmonary Disease; ATTEND Internal Medicine
DX: J18.9 Pneumonia, unspecified organism (principal); J96.01 Acute respiratory failure with hypoxia; U07.1 COVID-19; R78.81 Bacteremia; R64 Cachexia; L97.909 Non-pressure chronic ulcer of unspecified part of unspecified lower leg with unspecified severity; E46 Unspecified protein-calorie malnutrition; E87.1 Hypo-osmolality and hyponatremia; K55.9 Vascular disorder of intestine, unspecified; R19.7 Diarrhea, unspecified; K21.9 Gastro-esophageal reflux disease without esophagitis; I73.9 Peripheral vascular disease, unspecified; I25.10 Atherosclerotic heart disease of native coronary artery without angina pectoris; Z95.810 Presence of automatic (implantable) cardiac defibrillator; E78.00 Pure hypercholesterolemia, unspecified; J43.9 Emphysema, unspecified; I50.9 Heart failure, unspecified; M06.9 Rheumatoid arthritis, unspecified; I27.20 Pulmonary hypertension, unspecified; E87.6 Hypokalemia; N18.30 Chronic kidney disease, stage 3 unspecified; E78.5 Hyperlipidemia, unspecified; E87.5 Hyperkalemia; B95.5 Unspecified streptococcus as the cause of diseases classified elsewhere; Z86.718 Personal history of other venous thrombosis and embolism; K44.9 Diaphragmatic hernia without obstruction or gangrene; Z88.2 Allergy status to sulfonamides; Z79.899 Other long term (current) drug therapy; Z79.82 Long term (current) use of aspirin; Z87.891 Personal history of nicotine dependence

== ENCOUNTER 2022-04-22 12:45 | Emergency (ER) | payer MEDICARE, MEDICAID ==
[~2022-04-22] VITALS: Ht 157.5 cm; Wt 40.5 kg
[~2022-04-22 12:45] MED LIST changes: +AMOX875T2 PO; +ASCO500T PO; +MAGN500T12 PO; +PRED10TA2 PO; +PROB250C PO; +RAMI1CAP21 PO; +TIOT18INH INH
[2022-04-22] MEDS ORDERED: INCR1INH (13:02)
[2022-04-22] MEDS ORDERED: BREO1INH3 (13:02)
[2022-04-22] MEDS ORDERED: ALBU8.5H (13:02)
[2022-04-22] MEDS ORDERED: NITR0.4S14 (13:02)
[2022-04-22] MEDS ORDERED: HYDR50TA70 (13:02)
[2022-04-22 13:58] LABS: BASO % 0.4 % (0.0-1.0); HEMATOCRIT 32.8 % (36.0-47.0); HEMOGLOBIN 10.1 g/dl (12.0-15.5); LYMPH # 0.4 10^3/uL (1.5-5.0); MEAN CORPUSCULAR HEMOGLOBIN 29.4 pg (27.0-33.0); MEAN CORPUSCULAR HGB CONC 30.8 g/dl (32.0-36.5); MEAN CORPUSCULAR VOLUME 95.3 fl (80.0-96.0); MONO # 0.4 10^3/uL (0.0-0.8); MONO % 3.8 % (2.0-8.0); NEUTROPHILS # 9.3 10^3/uL (1.5-8.5); NEUTROPHILS % 91.5 % (36.0-66.0); PLATELET COUNT, AUTOMATED 334 10^3/uL (150-450); RED BLOOD COUNT 3.44 10^6/uL (4.00-5.40); WHITE BLOOD COUNT 10.1 10^3/uL (4.0-10.0)
[2022-04-22] MEDS ORDERED: DERMABOND TOPICAL SKIN ADHESIVE TOP ONE (14:20)
[2022-04-22 14:35] LABS: BLOOD UREA NITROGEN 13 MG/DL (7-18); CALCIUM LEVEL 8.6 MG/DL (8.8-10.2); CARBON DIOXIDE LEVEL 25 MEQ/L (21-32); CHLORIDE LEVEL 108 MEQ/L (98-107); CREATININE FOR GFR 0.79 MG/DL (0.55-1.30); GLOMERULAR FILTRATION RATE > 60.0 (>39); GLUCOSE, FASTING 122 MG/DL (70-100); POTASSIUM SERUM 4.6 MEQ/L (3.5-5.1); SODIUM LEVEL 140 MEQ/L (136-145)
[2022-04-22 15:30] VITALS: BP 119/58
== END 2022-04-22 15:55 | disposition home or self-care (01) ==
LOC: M ED 12:45
DX: S09.90XA Unspecified injury of head, initial encounter (principal); S01.21XA Laceration without foreign body of nose, initial encounter; R91.8 Other nonspecific abnormal finding of lung field; I10 Essential (primary) hypertension; I25.2 Old myocardial infarction; J45.909 Unspecified asthma, uncomplicated; N18.9 Chronic kidney disease, unspecified; J44.9 Chronic obstructive pulmonary disease, unspecified; M06.9 Rheumatoid arthritis, unspecified; Z87.891 Personal history of nicotine dependence; Z88.2 Allergy status to sulfonamides; Z79.51 Long term (current) use of inhaled steroids; Z79.82 Long term (current) use of aspirin; Z79.4 Long term (current) use of insulin; Z79.899 Other long term (current) drug therapy

== ENCOUNTER → 2022-04-26 | Outpatient (CLI) | payer MEDICARE, MEDICAID ==
[~2022-04-26] MED LIST changes: +ALBU8.5H; +BREO1INH3; +HYDR50TA70; +INCR1INH; +NITR0.4S14
[2022-04-26 14:18] LABS: BASO # 0.1 10^3/uL (0.0-0.2); BASO % 0.5 % (0.0-1.0); EOS % 0.1 % (0.0-3.0); HEMATOCRIT 33.4 % (36.0-47.0); HEMOGLOBIN 10.2 g/dl (12.0-15.5); LYMPH # 0.7 10^3/uL (1.5-5.0); LYMPH % 6.5 % (24.0-44.0); MEAN CORPUSCULAR HEMOGLOBIN 29.6 pg (27.0-33.0); MEAN CORPUSCULAR HGB CONC 30.5 g/dl (32.0-36.5); MEAN CORPUSCULAR VOLUME 96.8 fl (80.0-96.0); MONO # 0.5 10^3/uL (0.0-0.8); MONO % 4.7 % (2.0-8.0); NEUTROPHILS # 9.2 10^3/uL (1.5-8.5); NEUTROPHILS % 87.9 % (36.0-66.0); PLATELET COUNT, AUTOMATED 290 10^3/uL (150-450); RED BLOOD COUNT 3.45 10^6/uL (4.00-5.40); WHITE BLOOD COUNT 10.4 10^3/uL (4.0-10.0)
[2022-04-26 14:39] LABS: INR 0.92; PROTHROMBIN TIME 12.6 SECONDS (12.5-14.5)
[2022-04-26 14:40] LABS: PARTIAL THROMBOPLASTIN TIME 26.9 SECONDS (24.8-34.2)
[2022-04-26 15:27] LABS: BLOOD UREA NITROGEN 11 MG/DL (7-18); CALCIUM LEVEL 8.8 MG/DL (8.8-10.2); CARBON DIOXIDE LEVEL 25 MEQ/L (21-32); CHLORIDE LEVEL 107 MEQ/L (98-107); CREATININE FOR GFR 0.86 MG/DL (0.55-1.30); GLOMERULAR FILTRATION RATE > 60.0 (>39); GLUCOSE, FASTING 129 MG/DL (70-100); POTASSIUM SERUM 3.9 MEQ/L (3.5-5.1); SODIUM LEVEL 141 MEQ/L (136-145)
== END ==
LOC: M LAB 13:20
PROVIDERS: ATTEND Surgery Vascular Surgery
DX: Z01.818 Encounter for other preprocedural examination (principal); D69.8 Other specified hemorrhagic conditions; I70.213 Atherosclerosis of native arteries of extremities with intermittent claudication, bilateral legs

== ENCOUNTER → 2022-04-26 | Outpatient (CLI) | payer MEDICARE, MEDICAID | LOC: M LABSMTC 09:25 | PROVIDERS: ATTEND Surgery Vascular Surgery | DX: Z20.822 Contact with and (suspected) exposure to COVID-19 (principal) ==

== ENCOUNTER → 2022-05-08 | Outpatient (CLI) | payer MEDICARE, MEDICAID | LOC: M RAD 09:47 | PROVIDERS: ATTEND Internal Medicine Pulmonary Disease | DX: R91.8 Other nonspecific abnormal finding of lung field (principal); K44.9 Diaphragmatic hernia without obstruction or gangrene ==

== ENCOUNTER 2022-08-03 14:43 | Emergency (ER) | payer MEDICARE, MEDICAID ==
[~2022-08-03] VITALS: Ht 157.5 cm; Wt 39.4 kg
[2022-08-03] MEDS ORDERED: LIDOCAINE 1% MDV 20ML VIAL SC ONE (17:40)
[2022-08-03] MEDS ORDERED: CIPROFLOXACIN 500MG TABLET PO ONE (18:30)
[2022-08-03] MEDS ORDERED: metroNIDAZOLE (FLAGYL) 500MG TABLET PO ONE (18:30)
[2022-08-03] MEDS ORDERED: METR-265 PO (18:32)
[2022-08-03] MEDS ORDERED: CIPR-249 PO (18:32)
[2022-08-03 18:58] VITALS: BP 125/75
== END 2022-08-03 19:00 | disposition home or self-care (01) ==
LOC: M ED 14:43
DX: L03.317 Cellulitis of buttock (principal); L02.31 Cutaneous abscess of buttock; R22.43 Localized swelling, mass and lump, lower limb, bilateral; I10 Essential (primary) hypertension; I25.2 Old myocardial infarction; J44.9 Chronic obstructive pulmonary disease, unspecified; F17.200 Nicotine dependence, unspecified, uncomplicated; Z86.79 Personal history of other diseases of the circulatory system; Z86.718 Personal history of other venous thrombosis and embolism; Z88.2 Allergy status to sulfonamides; Z79.52 Long term (current) use of systemic steroids; Z79.891 Long term (current) use of opiate analgesic; Z79.810 Long term (current) use of selective estrogen receptor modulators (SERMs); Z79.899 Other long term (current) drug therapy

== ENCOUNTER → 2022-10-05 | Outpatient (CLI) | payer MEDICARE, MEDICAID ==
[~2022-10-05] MED LIST changes: +CIPR-249 PO; +METR-265 PO
== END ==
LOC: M PLAIMG 10:53
PROVIDERS: ATTEND Internal Medicine Pulmonary Disease
DX: R91.8 Other nonspecific abnormal finding of lung field (principal)

== ENCOUNTER → 2023-02-05 | Outpatient (CLI) | payer MEDICARE, MEDICAID ==
[2023-02-05 10:01] LABS: BLOOD UREA NITROGEN 12 MG/DL (9-23); CREATININE FOR GFR 0.78 MG/DL (0.55-1.30); GLOMERULAR FILTRATION RATE > 60.0 (>39)
== END ==
LOC: M LAB 08:24
PROVIDERS: ATTEND Physician Assistant
DX: I70.213 Atherosclerosis of native arteries of extremities with intermittent claudication, bilateral legs (principal)

== ENCOUNTER → 2023-02-05 | Outpatient (CLI) | payer MEDICARE, MEDICAID ==
[2023-02-05 09:40] LABS: BASO # 0.1 10^3/uL (0.0-0.2); BASO % 0.5 % (0.0-1.0); EOS % 0.1 % (0.0-3.0); LYMPH # 0.7 10^3/uL (1.5-5.0); LYMPH % 5.6 % (24.0-44.0); MEAN CORPUSCULAR HEMOGLOBIN 27.4 pg (27.0-33.0); MEAN CORPUSCULAR VOLUME 91.3 fl (80.0-96.0); MONO # 0.3 10^3/uL (0.0-0.8); MONO % 2.6 % (2.0-8.0); NEUTROPHILS # 10.6 10^3/uL (1.5-8.5); NEUTROPHILS % 90.6 % (36.0-66.0); PLATELET COUNT, AUTOMATED 426 10^3/uL (150-450); RED BLOOD COUNT 4.38 10^6/uL (4.00-5.40); WHITE BLOOD COUNT 11.7 10^3/uL (4.0-10.0)
[2023-02-05 10:02] LABS: ALBUMIN 3.3 G/DL (3.2-5.2); ALKALINE PHOSPHATASE 79 U/L (46-116); ALT/SGPT 13 U/L (7.0-40); AST/SGOT 11 U/L (<34); BILIRUBIN,TOTAL 0.3 MG/DL (0.3-1.2); BLOOD UREA NITROGEN 12 MG/DL (9-23); CALCIUM LEVEL 9.1 MG/DL (8.3-10.6); CARBON DIOXIDE LEVEL 24 MMOL/L (20-31); CHLORIDE LEVEL 107 MMOL/L (98-107); CHOLESTEROL LEVEL 134 MG/DL (<200); CHOLESTEROL RISK RATIO 2.23 (<5); CREATININE FOR GFR 0.78 MG/DL (0.55-1.30); GLOMERULAR FILTRATION RATE > 60.0 (>39); GLUCOSE, FASTING 118 MG/DL (74-106); LDL CHOLESTEROL 58.2 MG/DL (<100); POTASSIUM SERUM 4.5 MMOL/L (3.5-5.1); SODIUM LEVEL 141 MMOL/L (136-145); TOTAL PROTEIN 6.4 G/DL (5.7-8.2); TRIGLYCERIDES LEVEL 79 MG/DL (<150)
[2023-02-05 10:03] LABS: FREE T4 1.14 NG/DL (0.89-1.76); THYROID STIMULATING HORMONE 0.896 uIU/ML (0.55-4.78)
== END ==
LOC: M LAB 08:21
PROVIDERS: ATTEND Nurse Practitioner Adult Health
DX: E83.42 Hypomagnesemia (principal); E87.5 Hyperkalemia; E78.5 Hyperlipidemia, unspecified; I70.213 Atherosclerosis of native arteries of extremities with intermittent claudication, bilateral legs; Z79.899 Other long term (current) drug therapy

== ENCOUNTER → 2023-02-12 | Outpatient (CLI) | payer MEDICARE, MEDICAID ==
[~2023-02-12] MED LIST changes: +ISOVUE-370 76% 100ML VIAL As Ordered ONE
== END ==
LOC: M RAD 10:51
PROVIDERS: ATTEND Physician Assistant
DX: I77.4 Celiac artery compression syndrome (principal); K44.9 Diaphragmatic hernia without obstruction or gangrene; I70.213 Atherosclerosis of native arteries of extremities with intermittent claudication, bilateral legs

== ENCOUNTER → 2023-03-19 | Outpatient (CLI) | payer MEDICARE, MEDICAID ==
[~2023-03-19] MED LIST changes: -ISOVUE-370 76% 100ML VIAL As Ordered ONE
[2023-03-19 11:52] LABS: BLOOD UREA NITROGEN 11 MG/DL (9-23); CREATININE FOR GFR 0.77 MG/DL (0.55-1.30); GLOMERULAR FILTRATION RATE > 60.0 (>39)
== END ==
LOC: M LAB 10:49
PROVIDERS: ATTEND Student in an Organized Health Care Education/Training Program
DX: I67.1 Cerebral aneurysm, nonruptured (principal)

== ENCOUNTER → 2023-04-21 | Outpatient (REF) | payer MEDICARE, MEDICAID | LOC: M WUC 19:41 | PROVIDERS: ATTEND Registered Nurse | DX: N39.0 Urinary tract infection, site not specified (principal) ==

== ENCOUNTER 2023-04-28 09:52 | Inpatient (IN) | payer MEDICARE, MEDICAID ==
[~2023-04-28] VITALS: Ht 157.5 cm; Wt 47.6 kg
[~2023-04-28 09:52] MED LIST changes: -ALBU8.5H; +ALBU8.5H INH; -BREO1INH3; +BREO1INH3 INH; -INCR1INH; +INCR1INH INH; -NITR0.4S14; +NITR0.4S14 PO
[2023-04-28] MEDS ORDERED: methylPREDNISolone 125MG 2ML VIAL IV ONE (10:15)
[2023-04-28] MEDS ORDERED: DOXYCYCLINE HYCLATE 100MG TABLET PO ONE (10:35)
[2023-04-28 10:38] LABS: VENOUS BASE EXCESS -3.3 (-2.0-2.0); VENOUS HCO3 21.7 MMOL/L (23.0-27.0); VENOUS O2 SATURATION 66.2 % (60.0-80.0); VENOUS PARTIAL PRESSURE CO2 38.6 mmHg (38.0-50.0); VENOUS PARTIAL PRESSURE O2 35.1 mmHg (30.0-50.0); VENOUS PH 7.367 UNITS (7.330-7.430); VENOUS STANDARD HCO3 21.1 MMOL/L; VENOUS TOTAL CO2 22.8 MMOL/L (24.0-28.0)
[2023-04-28] MEDS ORDERED: CLOP75TA2 PO (10:39)
[2023-04-28 10:45] LABS: BASO % 0.2 % (0.0-1.0); HEMATOCRIT 38.7 % (36.0-47.0); HEMOGLOBIN 12.2 g/dl (12.0-15.5); LYMPH # 0.7 10^3/uL (1.5-5.0); MEAN CORPUSCULAR HGB CONC 31.5 g/dl (32.0-36.5); MEAN CORPUSCULAR VOLUME 91.9 fl (80.0-96.0); MONO % 4.1 % (2.0-8.0); NEUTROPHILS % 92.2 % (36.0-66.0); PLATELET COUNT, AUTOMATED 240 10^3/uL (150-450); RED BLOOD COUNT 4.21 10^6/uL (4.00-5.40); WHITE BLOOD COUNT 23.9 10^3/uL (4.0-10.0)
[2023-04-28] MEDS: cefTRIAXone SOD 1 GM in D5W MINI-BAG PLUS 50 ML IV ONE ×2 (10:53→11:12)
[2023-04-28] MEDS: IPRATROPIUM 0.5MG/ALBUTEROL 2.5MG INH SOL UD 3ML (DUONEB) NEB PRN ×2 (11:04→11:13)
[2023-04-28 11:16] LABS: ALBUMIN 3.2 G/DL (3.2-5.2); ALKALINE PHOSPHATASE 73 U/L (46-116); ALT/SGPT 17 U/L (7.0-40); AST/SGOT 18 U/L (<34); BILIRUBIN,DIRECT 0.2 MG/DL (<0.4); BILIRUBIN,TOTAL 0.6 MG/DL (0.3-1.2); BLOOD UREA NITROGEN 19 MG/DL (9-23); CALCIUM LEVEL 9.2 MG/DL (8.3-10.6); CARBON DIOXIDE LEVEL 26 MMOL/L (20-31); CHLORIDE LEVEL 104 MMOL/L (98-107); CREATININE FOR GFR 0.73 MG/DL (0.55-1.30); GLOMERULAR FILTRATION RATE > 60.0 (>39); GLUCOSE, FASTING 88 MG/DL (74-106); POTASSIUM SERUM 4.4 MMOL/L (3.5-5.1); SODIUM LEVEL 141 MMOL/L (136-145); TOTAL PROTEIN 6.3 G/DL (5.7-8.2)
[2023-04-28 11:18] LABS: THYROID STIMULATING HORMONE 1.685 uIU/ML (0.55-4.78)
[2023-04-28] MEDS ORDERED: ISOVUE-370 76% 100ML VIAL As Ordered ONE (11:28)
[2023-04-28] MEDS ORDERED: NS 1,430 ML in IV 1 EA IV ONE (12:40)
[2023-04-28] MEDS ORDERED: MED REC IN PROGRESS XX SCH (12:45)
[2023-04-28] MEDS ORDERED: PRED5PAK PO (13:06)
[2023-04-28] MEDS ORDERED: HOME MED LIST COMPLETE! XX SCH (13:15)
[2023-04-28] MEDS ORDERED: IPRATROPIUM 0.5MG/ALBUTEROL 2.5MG INH SOL UD 3ML (DUONEB) NEB PRN (14:00)
[2023-04-28] MEDS ORDERED: ACETAMINOPHEN 500 MG TAB PO PRN (14:30)
[2023-04-28] MEDS ORDERED: NITROGLYCERIN 0.4MG SUBL TABLET SL PRN (14:30)
[2023-04-28 14:35] LABS: PROCALCITONIN 0.35 ng/ml
[2023-04-28] MEDS: IPRATROPIUM 0.5MG/ALBUTEROL 2.5MG INH SOL UD 3ML (DUONEB) NEB SCH ×2 (15:01→19:12)
[2023-04-28 16:00] VITALS: BP 117/49; TEMP 98.2; O2SAT 96
[2023-04-28] MEDS: GABAPENTIN 300 MG CAP PO SCH ×2 (16:25→20:04)
[2023-04-28] MEDS: SYMBICORT 160/4.5MCG INHALER 6GM INH SCH (19:12)
[2023-04-28 19:15] VITALS: O2SAT 93
[2023-04-28] MEDS: DOXYCYCLINE HYCLATE 100 MG in D5W MINI-BAG PLUS 100 ML IV SCH (20:04)
[2023-04-28] MEDS: ATORVASTATIN 20 MG TAB PO SCH (20:04)
[2023-04-28 21:30] VITALS: BP 113/49; TEMP 98.6; O2SAT 94
[2023-04-28] MEDS: LR 1,000 ML IV SCH (22:58)
[2023-04-29] MEDS: IPRATROPIUM 0.5MG/ALBUTEROL 2.5MG INH SOL UD 3ML (DUONEB) NEB SCH ×4 (01:15→19:15)
[2023-04-29 05:15] VITALS: BP 100/44; TEMP 97.7; O2SAT 94
[2023-04-29] MEDS: METOPROLOL TART 12.5 MG PER 1/2 TAB PO SCH ×2 (06:10→20:31)
[2023-04-29 06:22] LABS: HEMATOCRIT 30.2 % (36.0-47.0); MEAN CORPUSCULAR HEMOGLOBIN 29.1 pg (27.0-33.0); MEAN CORPUSCULAR HGB CONC 31.5 g/dl (32.0-36.5); MEAN CORPUSCULAR VOLUME 92.4 fl (80.0-96.0); PLATELET COUNT, AUTOMATED 190 10^3/uL (150-450); RED BLOOD COUNT 3.27 10^6/uL (4.00-5.40); WHITE BLOOD COUNT 13.6 10^3/uL (4.0-10.0)
[2023-04-29 06:55] LABS: BLOOD UREA NITROGEN 21 MG/DL (9-23); CALCIUM LEVEL 8.5 MG/DL (8.3-10.6); CARBON DIOXIDE LEVEL 24 MMOL/L (20-31); CHLORIDE LEVEL 107 MMOL/L (98-107); CREATININE FOR GFR 0.74 MG/DL (0.55-1.30); GLOMERULAR FILTRATION RATE > 60.0 (>39); GLUCOSE, FASTING 155 MG/DL (74-106); SODIUM LEVEL 140 MMOL/L (136-145)
[2023-04-29 06:57] LABS: HEMOGLOBIN 9.5 g/dl (12.0-15.5)
[2023-04-29] MEDS: SYMBICORT 160/4.5MCG INHALER 6GM INH SCH ×2 (08:21→19:15)
[2023-04-29] MEDS: TIOTROPIUM INHALER/CAPSULE (SPIRIVA) INH SCH (08:21)
[2023-04-29] MEDS: cefTRIAXone SOD 1 GM in D5W MINI-BAG PLUS 50 ML IV SCH (08:52)
[2023-04-29] MEDS: CLOPIDOGREL 75 MG TAB PO SCH (08:55)
[2023-04-29] MEDS: GABAPENTIN 300 MG CAP PO SCH ×3 (08:55→20:30)
[2023-04-29] MEDS: predniSONE 20 MG TAB PO SCH (08:55)
[2023-04-29] MEDS: ENOXAPARIN 40MG/0.4ML SYRINGE (J1650 PER 10MG) SC SCH (08:56)
[2023-04-29] MEDS: FAMOTIDINE 20 MG TAB PO PRN (08:58)
[2023-04-29] MEDS: DOXYCYCLINE HYCLATE 100 MG in D5W MINI-BAG PLUS 100 ML IV SCH (09:32)
[2023-04-29] MEDS: guaiFENesin ER TABLET 600 MG TAB PO SCH ×2 (13:06→20:31)
[2023-04-29] MEDS: LR 1,000 ML IV SCH (13:06)
[2023-04-29 14:00] VITALS: BP 110/72; TEMP 97.8; O2SAT 96
[2023-04-29 20:00] VITALS: BP 106/47; TEMP 97.3; O2SAT 92
[2023-04-29] MEDS: DOXYCYCLINE HYCLATE 100MG TABLET PO SCH (20:31)
[2023-04-29] MEDS: ATORVASTATIN 20 MG TAB PO SCH (20:31)
[2023-04-30] VITALS (12 sets, daily range): BP systolic 119–124; BP diastolic 55–58; TEMP 97.3–97.9; O2SAT 85–97
[2023-04-30] MEDS: IPRATROPIUM 0.5MG/ALBUTEROL 2.5MG INH SOL UD 3ML (DUONEB) NEB SCH ×5 (01:15→14:26)
[2023-04-30 06:28] LABS: HEMATOCRIT 32.2 % (36.0-47.0); LYMPH # 0.4 10^3/uL (1.5-5.0); LYMPH % 3.3 % (24.0-44.0); MEAN CORPUSCULAR HEMOGLOBIN 28.7 pg (27.0-33.0); MEAN CORPUSCULAR HGB CONC 31.1 g/dl (32.0-36.5); MEAN CORPUSCULAR VOLUME 92.3 fl (80.0-96.0); MONO # 0.6 10^3/uL (0.0-0.8); MONO % 4.4 % (2.0-8.0); NEUTROPHILS # 11.4 10^3/uL (1.5-8.5); NEUTROPHILS % 91.7 % (36.0-66.0); PLATELET COUNT, AUTOMATED 213 10^3/uL (150-450); RED BLOOD COUNT 3.49 10^6/uL (4.00-5.40); WHITE BLOOD COUNT 12.4 10^3/uL (4.0-10.0)
[2023-04-30 06:47] LABS: BLOOD UREA NITROGEN 20 MG/DL (9-23); CALCIUM LEVEL 8.7 MG/DL (8.3-10.6); CARBON DIOXIDE LEVEL 25 MMOL/L (20-31); CHLORIDE LEVEL 108 MMOL/L (98-107); CREATININE FOR GFR 0.74 MG/DL (0.55-1.30); GLOMERULAR FILTRATION RATE > 60.0 (>39); GLUCOSE, FASTING 126 MG/DL (74-106); POTASSIUM SERUM 3.5 MMOL/L (3.5-5.1); SODIUM LEVEL 141 MMOL/L (136-145)
[2023-04-30] MEDS: SYMBICORT 160/4.5MCG INHALER 6GM INH SCH (07:38)
[2023-04-30] MEDS: TIOTROPIUM INHALER/CAPSULE (SPIRIVA) INH SCH (07:38)
[2023-04-30] MEDS: FAMOTIDINE 20 MG TAB PO PRN (08:49)
[2023-04-30] MEDS: guaiFENesin ER TABLET 600 MG TAB PO SCH (08:49)
[2023-04-30] MEDS: predniSONE 20 MG TAB PO SCH (08:49)
[2023-04-30] MEDS: GABAPENTIN 300 MG CAP PO SCH ×2 (08:49→15:30)
[2023-04-30] MEDS: CLOPIDOGREL 75 MG TAB PO SCH (08:50)
[2023-04-30] MEDS: METOPROLOL TART 12.5 MG PER 1/2 TAB PO SCH (08:50)
[2023-04-30] MEDS: DOXYCYCLINE HYCLATE 100MG TABLET PO SCH (08:50)
[2023-04-30] MEDS: ENOXAPARIN 40MG/0.4ML SYRINGE (J1650 PER 10MG) SC SCH (08:52)
[2023-04-30] MEDS: cefTRIAXone SOD 1 GM in D5W MINI-BAG PLUS 50 ML IV SCH (08:53)
[2023-04-30] MEDS ORDERED: POTASSIUM CHLORIDE 10MEQ SR TABLET PO ONE ×2 (09:35→11:00)
[2023-04-30 09:52] LABS: IONIZED CALCIUM 4.7 MG/DL (4.5-5.3)
[2023-04-30] MEDS ORDERED: MUCI1TAB16 PO (09:52)
[2023-04-30] MEDS ORDERED: BACI1CAP PO (09:52)
[2023-04-30] MEDS ORDERED: DOXY100C3 PO (09:52)
[2023-04-30] MEDS ORDERED: CEFD300CAP PO (09:52)
[2023-04-30] MEDS ORDERED: cefTRIAXone SOD 1 GM in D5W MINI-BAG PLUS 50 ML IV ONE (10:00)
[2023-04-30 10:19] LABS: MAGNESIUM LEVEL 1.4 MG/DL (1.8-2.4); POTASSIUM SERUM 3.4 MMOL/L (3.5-5.1)
[2023-04-30 10:22] LABS: CK-MB VALUE MASS 1.4 NG/ML (<3.6); MB/CK RELATIVE INDEX 2.41 (< OR =4)
[2023-04-30] MEDS ORDERED: MAGNESIUM OXIDE 400MG TAB (MAG-OX) PO ONE (11:40)
[2023-04-30] MEDS ORDERED: PRED20TA PO (11:45)
[2023-04-30] MEDS ORDERED: PRED10TA2 PO (11:45)
[2023-04-30] MEDS ORDERED: ALBU8.5H INH (11:45)
[2023-04-30] MEDS ORDERED: AZIT-12 PO (11:45)
[2023-04-30] MEDS ORDERED: MAG SULF 1GM/100ML (MAG RUN) 1 GM in IV 1 EA IV ONE (12:00)
[2023-04-30] MEDS ORDERED: MIDODRINE 5 MG TAB PO ONE (12:40)
[2023-04-30] MEDS ORDERED: FUROSEMIDE 20MG/2ML VIAL IV ONE (12:40)
[2023-05-01] MEDS ORDERED: cefTRIAXone SOD 2 GM in D5W MINI-BAG PLUS 50 ML IV SCH (09:00)
[2023-05-02 15:07] LABS: BODY FLUID CULTURE Not indicated. (.); LEGIONELLA ANTIGEN URINE Negative (Negative); ORGANISM ID Not indicated. (.); SPECIMEN SOURCE Urine (.); URINE STREP PNEUMONIAE ANTIGEN Negative (Negative)
== END 2023-04-30 16:59 | disposition home health service (06) | DRG 177 ==
LOC: M ED 09:52 → M ED INP 13:57 → EEVIPCON 13:57 → M MSPAV 16:01 → OBSVTOIN 04-29 22:23
PROVIDERS: ADMIT Internal Medicine; ATTEND General Practice
DX: J15.69 Pneumonia due to other Gram-negative bacteria (principal); J96.01 Acute respiratory failure with hypoxia; I47.20 Ventricular tachycardia, unspecified; E46 Unspecified protein-calorie malnutrition; J44.0 Chronic obstructive pulmonary disease with (acute) lower respiratory infection; I50.9 Heart failure, unspecified; K44.9 Diaphragmatic hernia without obstruction or gangrene; E83.42 Hypomagnesemia; E87.6 Hypokalemia; R91.1 Solitary pulmonary nodule; J84.10 Pulmonary fibrosis, unspecified; Z99.81 Dependence on supplemental oxygen; K21.9 Gastro-esophageal reflux disease without esophagitis; E78.5 Hyperlipidemia, unspecified; Z88.2 Allergy status to sulfonamides; Z79.899 Other long term (current) drug therapy; F17.200 Nicotine dependence, unspecified, uncomplicated; M06.9 Rheumatoid arthritis, unspecified; I73.9 Peripheral vascular disease, unspecified; I25.10 Atherosclerotic heart disease of native coronary artery without angina pectoris; Z95.0 Presence of cardiac pacemaker; Z79.52 Long term (current) use of systemic steroids; Z86.718 Personal history of other venous thrombosis and embolism; R00.0 Tachycardia, unspecified; Z66 Do not resuscitate; D64.9 Anemia, unspecified

== ENCOUNTER → 2023-05-31 | Outpatient (CLI) | payer MEDICARE, MEDICAID ==
[~2023-05-31] MED LIST changes: +AZIT-12 PO; +BACI1CAP PO; +CEFD300CAP PO; +CLOP75TA2 PO; +DOXY100C3 PO; +MUCI1TAB16 PO; +PRED20TA PO; +PRED5PAK PO
== END ==
LOC: M PLAIMG 09:56
PROVIDERS: ATTEND Internal Medicine Pulmonary Disease
DX: R91.8 Other nonspecific abnormal finding of lung field (principal); J84.10 Pulmonary fibrosis, unspecified; J44.9 Chronic obstructive pulmonary disease, unspecified; J43.9 Emphysema, unspecified; K44.9 Diaphragmatic hernia without obstruction or gangrene

== ENCOUNTER → 2023-09-16 | Outpatient (CLI) | payer MEDICARE, MEDICAID | LOC: M PLAIMG 08:56 | PROVIDERS: ATTEND Internal Medicine Pulmonary Disease | DX: R91.8 Other nonspecific abnormal finding of lung field (principal); J44.9 Chronic obstructive pulmonary disease, unspecified; K44.9 Diaphragmatic hernia without obstruction or gangrene ==

== ENCOUNTER 2023-11-11 11:36 | Inpatient (IN) | payer MEDICARE, MEDICAID ==
[~2023-11-11] VITALS: Ht 157.5 cm; Wt 44.1 kg
[~2023-11-11 11:36] MED LIST changes: -NITR0.4S14 PO; +NITR0.4S14 SL; +RAMI1.258 PO; -RAMI1CAP21 PO
[2023-11-11] MEDS: LIDOCAINE 2% 5ML JELLY UROJET TOP ONE (11:55)
[2023-11-11] MEDS: NS 1,000 ML IV ONE ×2 (12:20→14:00)
[2023-11-11 12:32] LABS: VENOUS BASE EXCESS -1.8 (-2.0-2.0); VENOUS O2 SATURATION 71.1 % (60.0-80.0); VENOUS PARTIAL PRESSURE CO2 50.7 mmHg (38.0-50.0); VENOUS PARTIAL PRESSURE O2 39.4 mmHg (30.0-50.0); VENOUS PH 7.311 UNITS (7.330-7.430); VENOUS STANDARD HCO3 22.4 MMOL/L; VENOUS TOTAL CO2 26.6 MMOL/L (24.0-28.0)
[2023-11-11 12:34] LABS: HEMATOCRIT 41.5 % (36.0-47.0); HEMOGLOBIN 13.4 g/dl (12.0-15.5); MEAN CORPUSCULAR HEMOGLOBIN 31.2 pg (27.0-33.0); MEAN CORPUSCULAR HGB CONC 32.3 g/dl (32.0-36.5); MEAN CORPUSCULAR VOLUME 96.7 fl (80.0-96.0); PLATELET COUNT, AUTOMATED 276 10^3/uL (150-450); RED BLOOD COUNT 4.29 10^6/uL (4.00-5.40)
[2023-11-11 12:41] LABS: WHITE BLOOD COUNT 33.5 10^3/uL (4.0-10.0)
[2023-11-11 12:47] LABS: INR 1.04; PARTIAL THROMBOPLASTIN TIME 22.4 SECONDS (24.8-34.2); PROTHROMBIN TIME 13.3 SECONDS (12.5-14.5)
[2023-11-11] MEDS ORDERED: ISOVUE-370 76% 100ML VIAL As Ordered ONE (12:49)
[2023-11-11 13:06] LABS: CK-MB VALUE MASS 2.8 NG/ML (<3.6)
[2023-11-11 13:07] LABS: C REACTIVE PROTEIN QUANTITATIV 8.5 MG/DL (<1.0)
[2023-11-11 13:08] LABS: MB/CK RELATIVE INDEX 1.02 (< OR =4)
[2023-11-11 13:09] LABS: BILIRUBIN,DIRECT 0.3 MG/DL (<0.4); BILIRUBIN,TOTAL 0.6 MG/DL (0.3-1.2); CALCIUM LEVEL 9.1 MG/DL (8.3-10.6); CREATININE FOR GFR 1.28 MG/DL (0.55-1.30); GLOMERULAR FILTRATION RATE 43.6 (>39); MAGNESIUM LEVEL 1.1 MG/DL (1.8-2.4); POTASSIUM SERUM 3.6 MMOL/L (3.5-5.1); TOTAL PROTEIN 5.8 G/DL (5.7-8.2)
[2023-11-11 13:14] LABS: LYMPHOCYTES 2 % (16-44); METAMYELOCYTES 1 % (0-0); MONOCYTES 9 % (0-5); NEUTROPHILS 84 % (28-66)
[2023-11-11 13:15] LABS: PLATELET ESTIMATE NORMAL (NORMAL)
[2023-11-11] MEDS ORDERED: GUAI600T12 PO (13:44)
[2023-11-11] MEDS ORDERED: MECL-86 PO (13:44)
[2023-11-11] MEDS ORDERED: HOME MED LIST COMPLETE! XX SCH (13:45)
[2023-11-11] MEDS: PIPERACILLIN/TAZOBACTAM SOD 4.5 GM in D5W MINI-BAG PLUS 50 ML IV ONE (14:00)
[2023-11-11 14:23] LABS: CK-MB VALUE MASS 2.9 NG/ML (<3.6)
[2023-11-11 14:24] LABS: MB/CK RELATIVE INDEX 0.91 (< OR =4)
[2023-11-11 15:03] LABS: PROCALCITONIN 1.41 ng/ml
[2023-11-11] MEDS: MAG SULF 1GM/100ML (MAG RUN) 1 GM in IV 1 EA IV SCH (16:00)
[2023-11-11] MEDS ORDERED: guaiFENesin ER TABLET 600 MG TAB PO PRN (17:00)
[2023-11-11] MEDS ORDERED: FAMOTIDINE 20 MG TAB PO PRN (17:00)
[2023-11-11] MEDS ORDERED: ALBUTEROL 90 MCG/ACT 8GM HFA INHALER INH PRN (17:00)
[2023-11-11] MEDS ORDERED: MECLIZINE 25 MG TABLET PO PRN (17:00)
[2023-11-11] MEDS ORDERED: NITROGLYCERIN 0.4MG SUBL TABLET SL PRN (17:00)
[2023-11-11] MEDS: LR 1,000 ML IV SCH (17:07)
[2023-11-11] MEDS ORDERED: CALCIUM CARBONATE 500 MG CHEW U/D PO PRN (17:15)
[2023-11-11] MEDS: CLOPIDOGREL 75 MG TAB PO SCH (18:05)
[2023-11-11] MEDS: ADVAIR HFA 115/21MCG INHALER INH SCH (19:42)
[2023-11-11] MEDS ORDERED: GABAPENTIN 300 MG CAP PO SCH (21:00)
[2023-11-11] MEDS: HEPARIN SOD (PORCINE) 5000UNITS/ML 1ML VIAL/SYRINGE SQ SCH (21:30)
[2023-11-11 23:00] VITALS: BP 108/71; TEMP 100.1; O2SAT 98
[2023-11-12] VITALS (49 sets, daily range): BP systolic 68–120; BP diastolic 36–76; TEMP 97.1–98.9; O2SAT 71–99
[2023-11-12] MEDS: cefTRIAXone SOD 1 GM in D5W MINI-BAG PLUS 50 ML IV SCH (02:14)
[2023-11-12] MEDS: DOXYCYCLINE HYCLATE 100MG TABLET PO SCH (02:14)
[2023-11-12 02:25] LABS: BASO # 0.1 10^3/uL (0.0-0.2); BASO % 0.3 % (0.0-1.0); HEMATOCRIT 36.8 % (36.0-47.0); HEMOGLOBIN 11.7 g/dl (12.0-15.5); LYMPH # 0.5 10^3/uL (1.5-5.0); LYMPH % 2.1 % (24.0-44.0); MEAN CORPUSCULAR HGB CONC 31.8 g/dl (32.0-36.5); MEAN CORPUSCULAR VOLUME 97.6 fl (80.0-96.0); MONO # 0.8 10^3/uL (0.0-0.8); MONO % 3.2 % (2.0-8.0); NEUTROPHILS % 91.6 % (36.0-66.0); PLATELET COUNT, AUTOMATED 253 10^3/uL (150-450); RED BLOOD COUNT 3.77 10^6/uL (4.00-5.40)
[2023-11-12 03:00] LABS: BLOOD UREA NITROGEN 14 MG/DL (9-23); CALCIUM LEVEL 7.9 MG/DL (8.3-10.6); CARBON DIOXIDE LEVEL 23 MMOL/L (20-31); CHLORIDE LEVEL 105 MMOL/L (98-107); CREATININE FOR GFR 0.96 MG/DL (0.55-1.30); GLOMERULAR FILTRATION RATE > 60.0 (>39); GLUCOSE, FASTING 75 MG/DL (74-106); MAGNESIUM LEVEL 1.9 MG/DL (1.8-2.4); POTASSIUM SERUM 3.5 MMOL/L (3.5-5.1); SODIUM LEVEL 135 MMOL/L (136-145)
[2023-11-12 07:04] LABS: HEMATOCRIT 38.2 % (36.0-47.0); MEAN CORPUSCULAR HEMOGLOBIN 30.7 pg (27.0-33.0); MEAN CORPUSCULAR HGB CONC 31.4 g/dl (32.0-36.5); MEAN CORPUSCULAR VOLUME 97.7 fl (80.0-96.0); PLATELET COUNT, AUTOMATED 264 10^3/uL (150-450); RED BLOOD COUNT 3.91 10^6/uL (4.00-5.40); WHITE BLOOD COUNT 26.1 10^3/uL (4.0-10.0)
[2023-11-12 07:19] LABS: BLOOD UREA NITROGEN 14 MG/DL (9-23); CALCIUM LEVEL 7.9 MG/DL (8.3-10.6); CARBON DIOXIDE LEVEL 23 MMOL/L (20-31); CHLORIDE LEVEL 103 MMOL/L (98-107); CREATININE FOR GFR 0.97 MG/DL (0.55-1.30); GLOMERULAR FILTRATION RATE > 60.0 (>39); GLUCOSE, FASTING 73 MG/DL (74-106); MAGNESIUM LEVEL 1.8 MG/DL (1.8-2.4); POTASSIUM SERUM 3.4 MMOL/L (3.5-5.1); SODIUM LEVEL 134 MMOL/L (136-145)
[2023-11-12] MEDS: TIOTROPIUM INHALER/CAPSULE (SPIRIVA) INH SCH (07:21)
[2023-11-12] MEDS: IPRATROPIUM 0.5MG/ALBUTEROL 2.5MG INH SOL UD 3ML (DUONEB) NEB SCH (07:22)
[2023-11-12] MEDS: predniSONE 5 MG TAB PO SCH (09:07)
[2023-11-12] MEDS: CETIRIZINE (ZyrTEC) 10 MG TAB PO SCH (09:07)
[2023-11-12] MEDS: ATORVASTATIN 20 MG TAB PO SCH (09:08)
[2023-11-12] MEDS: ACETAMINOPHEN 500 MG TAB PO PRN (09:09)
[2023-11-12] MEDS: FUROSEMIDE 40MG/4ML VIAL IV ONE (10:00)
[2023-11-12] MEDS: POTASSIUM CHLORIDE 10MEQ SR TABLET PO ONE (12:58)
[2023-11-12] MEDS: PANTOPRAZOLE 40MG VIAL IV SCH (15:00)
[2023-11-12] MEDS ORDERED: NS 500 ML IV ONE (16:00)
[2023-11-12] MEDS: NS 1,000 ML IV ONE ×2 (16:39→18:37)
[2023-11-12] MEDS: NS 1,000 ML IV SCH (17:39)
[2023-11-13] VITALS (27 sets, daily range): BP systolic 96–152; BP diastolic 47–63; TEMP 97.4–100.1; O2SAT 75–99
[2023-11-13] MEDS: RAMELTEON 8 MG TAB (ROZEREM) PO ONE (01:41)
[2023-11-13 04:09] LABS: HEMATOCRIT 31.4 % (36.0-47.0); MEAN CORPUSCULAR HEMOGLOBIN 30.9 pg (27.0-33.0); MEAN CORPUSCULAR HGB CONC 31.8 g/dl (32.0-36.5); MEAN CORPUSCULAR VOLUME 96.9 fl (80.0-96.0); PLATELET COUNT, AUTOMATED 210 10^3/uL (150-450); RED BLOOD COUNT 3.24 10^6/uL (4.00-5.40); WHITE BLOOD COUNT 21.2 10^3/uL (4.0-10.0)
[2023-11-13 04:31] LABS: BLOOD UREA NITROGEN 17 MG/DL (9-23); CALCIUM LEVEL 7.2 MG/DL (8.3-10.6); CARBON DIOXIDE LEVEL 22 MMOL/L (20-31); CHLORIDE LEVEL 107 MMOL/L (98-107); CREATININE FOR GFR 0.82 MG/DL (0.55-1.30); GLOMERULAR FILTRATION RATE > 60.0 (>39); GLUCOSE, FASTING 85 MG/DL (74-106); MAGNESIUM LEVEL 1.3 MG/DL (1.8-2.4); POTASSIUM SERUM 3.6 MMOL/L (3.5-5.1); SODIUM LEVEL 136 MMOL/L (136-145)
[2023-11-13 04:43] LABS: LYMPHOCYTES 1 % (16-44); MONOCYTES 2 % (0-5); NEUTROPHILS 87 % (28-66)
[2023-11-13 04:44] LABS: PLATELET ESTIMATE NORMAL (NORMAL)
[2023-11-13 04:46] LABS: ANISOCYTOSIS 1+; OVALOCYTES 1+; POIKILOCYTOSIS 1+
[2023-11-13] MEDS: MAG SULF 1GM/100ML (MAG RUN) 1 GM in IV 1 EA IV SCH ×2 (05:38→08:37)
[2023-11-13] MEDS ORDERED: MAG SULF 1GM/100ML (MAG RUN) 1 GM in IV 1 EA IV SCH (06:55)
[2023-11-13] MEDS ORDERED: ACETAMINOPHEN TAB 650MG DOSE (2X325MG) PO ONE (12:30)
[2023-11-13] MEDS ORDERED: LACTOBACILLUS ACIDOPHILUS CAP (BACID) PO SCH (12:30)
[2023-11-13] MEDS ORDERED: PIPERACILLIN/TAZOBACTAM SOD 3.375 GM in D5W MINI-BAG PLUS 50 ML IV SCH (13:00)
[2023-11-13] MEDS: ALBUTEROL SULFATE 2.5MG/0.5ML INH NEB SOLN NEB PRN (13:03)
[2023-11-13] MEDS ORDERED: SCOPOLAMINE 1MG TRANSDERMAL PATCH TOP PRN (13:30)
[2023-11-13] MEDS ORDERED: MORPHINE 2 MG/ML 1ML VIAL IV PRN (13:30)
[2023-11-13] MEDS ORDERED: LORazepam 2 MG/ML 1ML VIAL IV PRN (13:30)
[2023-11-13 13:38] LABS: PROCALCITONIN 14.17 ng/ml
== END 2023-11-13 13:47 | disposition expired | DRG 871 ==
LOC: M ED 11:36 → EDBD 11:36 → M ED INP 11:37 → M MSPAV 20:46 → OBSVTOIN 11-12 12:48 → M PCU 11-12 15:35
PROVIDERS: ADMIT Internal Medicine; ATTEND Internal Medicine
DX: A41.9 Sepsis, unspecified organism (principal); J96.21 Acute and chronic respiratory failure with hypoxia; E43 Unspecified severe protein-calorie malnutrition; J69.0 Pneumonitis due to inhalation of food and vomit; G93.41 Metabolic encephalopathy; J96.22 Acute and chronic respiratory failure with hypercapnia; A09 Infectious gastroenteritis and colitis, unspecified; N17.9 Acute kidney failure, unspecified; J44.0 Chronic obstructive pulmonary disease with (acute) lower respiratory infection; I50.22 Chronic systolic (congestive) heart failure; Z68.1 Body mass index [BMI] 19.9 or less, adult; E87.20 Acidosis, unspecified; M06.9 Rheumatoid arthritis, unspecified; I73.9 Peripheral vascular disease, unspecified; S02.2XXA Fracture of nasal bones, initial encounter for closed fracture; E83.42 Hypomagnesemia; I25.2 Old myocardial infarction; M81.0 Age-related osteoporosis without current pathological fracture; Z88.2 Allergy status to sulfonamides; Z79.899 Other long term (current) drug therapy; K44.9 Diaphragmatic hernia without obstruction or gangrene; I25.10 Atherosclerotic heart disease of native coronary artery without angina pectoris; Z98.41 Cataract extraction status, right eye; Z98.42 Cataract extraction status, left eye; Z95.0 Presence of cardiac pacemaker; F17.200 Nicotine dependence, unspecified, uncomplicated; Z66 Do not resuscitate